=== PATIENT | female | born 1955 | race Caucasian/White ===

== ENCOUNTER 2021-09-26 | Inpatient (IN) | payer MEDICARE, MEDICAID ==
[~2021-09-26] VITALS: Ht 157.5 cm; Wt 40.4 kg
[2021-09-28] MEDS ORDERED: ACETAMINOPHEN 650 MG/20 ML UDC- SA PATIENTS-FEVER ONLY GT PRN (10:45)
[2021-09-28] MEDS ORDERED: HYDROGEN PEROXIDE 3% 118 ML BOTTLE TP PRN (10:45)
[2021-09-28] MEDS ORDERED: LORAZEPAM 0.5 MG TABLET GT PRN (10:45)
[2021-09-28] MEDS ORDERED: MEROPENEM 0.5 G in IV NORMAL SALINE 50 ML IV SCH (14:00)
[2021-09-28] MEDS: RILUZOLE 50 MG TABLET GT SCH (17:56)
[2021-09-28] MEDS: HYDROGEN PEROXIDE 3% 118 ML BOTTLE TP SCH (20:59)
[2021-09-28] MEDS: COD LIVER OIL/ZINC OXIDE OINT 113 GM TUBE TOP SCH (21:00)
[2021-09-28] MEDS: METOPROLOL TARTRATE 25 MG TABLET GT SCH (21:00)
[2021-09-28] MEDS: VITAMINS A AND D OINT TP SCH (21:00)
[2021-09-28] MEDS: NORMAL SALINE FLUSH 10 ML DISP.SYRIN IV SCH (21:00)
[2021-09-28] MEDS: HEPARIN SODIUM,PORCINE 5,000 UNITS/ML VIAL SQ SCH (21:00)
[2021-09-29] MEDS: JEVITY 1.2 1000 ML LIQUID GT PRN (04:04)
[2021-09-29] MEDS: MULTIVITAMINS,THERAPEUTIC TABLET GT SCH (06:28)
[2021-09-29] MEDS: RILUZOLE 50 MG TABLET GT SCH ×2 (06:28→17:39)
[2021-09-29] MEDS: FAMOTIDINE 20 MG TABLET GT SCH (06:28)
[2021-09-29] MEDS: ASCORBIC ACID 500 MG TABLET GT SCH (06:28)
[2021-09-29] MEDS: NORMAL SALINE FLUSH 10 ML DISP.SYRIN IV SCH ×2 (09:00→21:00)
[2021-09-29] MEDS: METOPROLOL TARTRATE 25 MG TABLET GT SCH ×2 (09:00→21:00)
[2021-09-29] MEDS: COD LIVER OIL/ZINC OXIDE OINT 113 GM TUBE TOP SCH ×2 (09:12→21:00)
[2021-09-29] MEDS: HEPARIN SODIUM,PORCINE 5,000 UNITS/ML VIAL SQ SCH ×2 (09:12→21:00)
[2021-09-29] MEDS: VITAMINS A AND D OINT TP SCH ×2 (09:12→21:00)
[2021-09-29] MEDS: HYDROGEN PEROXIDE 3% 118 ML BOTTLE TP SCH ×2 (09:29→21:18)
--- NOTE | 2021-09-29 11:25 | NUR ---
This SW notified patient's son Thor by email that the next IDT meeting for the patient is scheduled for 10/06/2021 at 11am. This SW asked Thor to let this SW know if he would like to participate in the meeting by speaker phone
[2021-09-30] MEDS: JEVITY 1.2 1000 ML LIQUID GT PRN ×2 (00:56→17:35)
[2021-09-30] MEDS: RILUZOLE 50 MG TABLET GT SCH ×2 (05:41→17:16)
[2021-09-30] MEDS: MULTIVITAMINS,THERAPEUTIC TABLET GT SCH (05:41)
[2021-09-30] MEDS: FAMOTIDINE 20 MG TABLET GT SCH (05:41)
[2021-09-30] MEDS: ASCORBIC ACID 500 MG TABLET GT SCH (05:41)
[2021-09-30] MEDS: METOPROLOL TARTRATE 25 MG TABLET GT SCH ×2 (08:35→20:07)
[2021-09-30] MEDS: VITAMINS A AND D OINT TP SCH ×2 (08:36→20:11)
[2021-09-30] MEDS: NORMAL SALINE FLUSH 10 ML DISP.SYRIN IV SCH ×2 (08:36→21:00)
[2021-09-30] MEDS: COD LIVER OIL/ZINC OXIDE OINT 113 GM TUBE TOP SCH ×2 (08:36→20:11)
[2021-09-30] MEDS: HEPARIN SODIUM,PORCINE 5,000 UNITS/ML VIAL SQ SCH ×2 (08:38→20:08)
[2021-09-30] MEDS: HYDROGEN PEROXIDE 3% 118 ML BOTTLE TP SCH ×2 (09:14→21:00)
[2021-10-01] MEDS: FAMOTIDINE 20 MG TABLET GT SCH (05:10)
[2021-10-01] MEDS: ASCORBIC ACID 500 MG TABLET GT SCH (05:10)
[2021-10-01] MEDS: MULTIVITAMINS,THERAPEUTIC TABLET GT SCH (05:10)
[2021-10-01] MEDS: RILUZOLE 50 MG TABLET GT SCH ×2 (05:10→17:36)
[2021-10-01] MEDS: METOPROLOL TARTRATE 25 MG TABLET GT SCH ×2 (08:10→21:20)
[2021-10-01] MEDS: COD LIVER OIL/ZINC OXIDE OINT 113 GM TUBE TOP SCH ×2 (08:11→21:41)
[2021-10-01] MEDS: VITAMINS A AND D OINT TP SCH ×2 (08:11→21:41)
[2021-10-01] MEDS: HEPARIN SODIUM,PORCINE 5,000 UNITS/ML VIAL SQ SCH ×2 (08:11→21:21)
[2021-10-01] MEDS: HYDROGEN PEROXIDE 3% 118 ML BOTTLE TP SCH ×2 (08:35→19:32)
[2021-10-01] MEDS: NORMAL SALINE FLUSH 10 ML DISP.SYRIN IV SCH ×2 (09:00→21:00)
--- NOTE | 2021-10-01 19:30 | NUR ---
SEEN BY WITH NNO.
[2021-10-02] MEDS: JEVITY 1.2 1000 ML LIQUID GT PRN (03:40)
[2021-10-02] MEDS: MULTIVITAMINS,THERAPEUTIC TABLET GT SCH (05:12)
[2021-10-02] MEDS: ASCORBIC ACID 500 MG TABLET GT SCH (05:12)
[2021-10-02] MEDS: FAMOTIDINE 20 MG TABLET GT SCH (05:12)
[2021-10-02] MEDS: RILUZOLE 50 MG TABLET GT SCH ×2 (05:12→17:37)
[2021-10-02] MEDS: METOPROLOL TARTRATE 25 MG TABLET GT SCH ×2 (08:01→20:36)
[2021-10-02] MEDS: HEPARIN SODIUM,PORCINE 5,000 UNITS/ML VIAL SQ SCH ×2 (08:02→20:12)
[2021-10-02] MEDS: COD LIVER OIL/ZINC OXIDE OINT 113 GM TUBE TOP SCH ×2 (08:04→20:36)
[2021-10-02] MEDS: VITAMINS A AND D OINT TP SCH ×2 (08:04→20:38)
[2021-10-02] MEDS: NORMAL SALINE FLUSH 10 ML DISP.SYRIN IV SCH ×2 (09:00→21:00)
[2021-10-02] MEDS: HYDROGEN PEROXIDE 3% 118 ML BOTTLE TP SCH ×2 (09:45→21:05)
--- NOTE | 2021-10-02 17:01 | NUR ---
RT. ARM MIDLINE LOCAL DRESSING CHANGED IN STERILE MANNER ,REMAINS INTACT AND PATENT.
[2021-10-03] MEDS: JEVITY 1.2 1000 ML LIQUID GT PRN (01:11)
[2021-10-03] MEDS: RILUZOLE 50 MG TABLET GT SCH ×2 (05:37→17:40)
[2021-10-03] MEDS: ASCORBIC ACID 500 MG TABLET GT SCH (05:37)
[2021-10-03] MEDS: FAMOTIDINE 20 MG TABLET GT SCH (05:37)
[2021-10-03] MEDS: MULTIVITAMINS,THERAPEUTIC TABLET GT SCH (05:37)
[2021-10-03] MEDS: VITAMINS A AND D OINT TP SCH ×2 (08:53→21:19)
[2021-10-03] MEDS: COD LIVER OIL/ZINC OXIDE OINT 113 GM TUBE TOP SCH ×2 (08:53→21:19)
[2021-10-03] MEDS: METOPROLOL TARTRATE 25 MG TABLET GT SCH ×2 (08:53→21:18)
[2021-10-03] MEDS: HEPARIN SODIUM,PORCINE 5,000 UNITS/ML VIAL SQ SCH ×2 (08:54→21:20)
[2021-10-03] MEDS: NORMAL SALINE FLUSH 10 ML DISP.SYRIN IV SCH ×2 (09:00→21:00)
[2021-10-03] MEDS: HYDROGEN PEROXIDE 3% 118 ML BOTTLE TP SCH ×2 (09:07→21:04)
[2021-10-04] MEDS: ASCORBIC ACID 500 MG TABLET GT SCH (05:10)
[2021-10-04] MEDS: FAMOTIDINE 20 MG TABLET GT SCH (05:10)
[2021-10-04] MEDS: MULTIVITAMINS,THERAPEUTIC TABLET GT SCH (05:10)
[2021-10-04] MEDS: RILUZOLE 50 MG TABLET GT SCH ×2 (05:10→17:18)
[2021-10-04] MEDS: METOPROLOL TARTRATE 25 MG TABLET GT SCH ×2 (08:38→21:30)
[2021-10-04] MEDS: COD LIVER OIL/ZINC OXIDE OINT 113 GM TUBE TOP SCH ×2 (08:39→21:30)
[2021-10-04] MEDS: VITAMINS A AND D OINT TP SCH ×2 (08:39→21:31)
[2021-10-04] MEDS: HEPARIN SODIUM,PORCINE 5,000 UNITS/ML VIAL SQ SCH ×2 (08:40→21:00)
[2021-10-04] MEDS: HYDROGEN PEROXIDE 3% 118 ML BOTTLE TP SCH ×2 (09:01→21:17)
--- NOTE | 2021-10-04 13:00 | NUR ---
SEEN BY JAKE Valdes AND WITH NNO.
[2021-10-04] MEDS: NORMAL SALINE FLUSH 10 ML DISP.SYRIN IV SCH (21:00)
[2021-10-05] MEDS: RILUZOLE 50 MG TABLET GT SCH ×2 (05:42→17:47)
[2021-10-05] MEDS: FAMOTIDINE 20 MG TABLET GT SCH (05:42)
[2021-10-05] MEDS: ASCORBIC ACID 500 MG TABLET GT SCH (05:43)
[2021-10-05] MEDS: MULTIVITAMINS,THERAPEUTIC TABLET GT SCH (05:43)
[2021-10-05] MEDS: METOPROLOL TARTRATE 25 MG TABLET GT SCH ×2 (08:48→20:45)
[2021-10-05] MEDS: HEPARIN SODIUM,PORCINE 5,000 UNITS/ML VIAL SQ SCH ×2 (08:49→21:00)
[2021-10-05] MEDS: VITAMINS A AND D OINT TP SCH ×2 (08:49→20:45)
[2021-10-05] MEDS: COD LIVER OIL/ZINC OXIDE OINT 113 GM TUBE TOP SCH ×2 (08:49→20:45)
[2021-10-05] MEDS: HYDROGEN PEROXIDE 3% 118 ML BOTTLE TP SCH ×2 (09:27→21:35)
[2021-10-05] MEDS: NORMAL SALINE FLUSH 10 ML DISP.SYRIN IV SCH (21:00)
[2021-10-06] MEDS: JEVITY 1.2 1000 ML LIQUID GT PRN (03:59)
[2021-10-06] MEDS: FAMOTIDINE 20 MG TABLET GT SCH (05:23)
[2021-10-06] MEDS: RILUZOLE 50 MG TABLET GT SCH ×2 (05:23→17:41)
[2021-10-06] MEDS: MULTIVITAMINS,THERAPEUTIC TABLET GT SCH (05:23)
[2021-10-06] MEDS: ASCORBIC ACID 500 MG TABLET GT SCH (05:23)
[2021-10-06] MEDS: NORMAL SALINE FLUSH 10 ML DISP.SYRIN IV SCH ×2 (09:00→21:00)
[2021-10-06] MEDS: VITAMINS A AND D OINT TP SCH ×2 (09:07→20:05)
[2021-10-06] MEDS: COD LIVER OIL/ZINC OXIDE OINT 113 GM TUBE TOP SCH (09:07)
[2021-10-06] MEDS: METOPROLOL TARTRATE 25 MG TABLET GT SCH ×2 (09:07→20:06)
[2021-10-06] MEDS: HEPARIN SODIUM,PORCINE 5,000 UNITS/ML VIAL SQ SCH ×2 (09:08→20:05)
[2021-10-06] MEDS: HYDROGEN PEROXIDE 3% 118 ML BOTTLE TP SCH ×2 (09:41→20:16)
--- NOTE | 2021-10-06 13:58 | NUR ---
INTERDISCIPLINARY PLAN OF CARE CONFERENCE was held today. Pt's son Thor, was not available to participate in the meeting today. Dr. Ceja and the Interdisciplinary Team reviewed the current plan of care in detail. RN reported on patient's medical condition and note there has not been significant changes. Per dietitian, patient has been tolerating feeding. See all disciplines IDT notes and physician's progress notes for additional details.
--- NOTE | 2021-10-06 15:40 | NUR ---
PT'S SON WAS CALLED AND AWARE OF COVID 19 TEST RESULT NEGATIVE.
[2021-10-06] MEDS: REMEDY ESSENTIAL ZINC PASTE 113 GM TP SCH (20:05)
[2021-10-06] MEDS: ACETAMINOPHEN 650 MG/20 ML UDC- SA PATIENTS-PAIN ONLY GT PRN (20:30)
[2021-10-07] MEDS: JEVITY 1.2 1000 ML LIQUID GT PRN ×2 (00:45→22:00)
[2021-10-07] MEDS: MULTIVITAMINS,THERAPEUTIC TABLET GT SCH (05:57)
[2021-10-07] MEDS: FAMOTIDINE 20 MG TABLET GT SCH (05:57)
[2021-10-07] MEDS: ASCORBIC ACID 500 MG TABLET GT SCH (05:57)
[2021-10-07] MEDS: RILUZOLE 50 MG TABLET GT SCH ×2 (05:57→17:11)
[2021-10-07] MEDS: METOPROLOL TARTRATE 25 MG TABLET GT SCH ×2 (08:25→20:11)
[2021-10-07] MEDS: HEPARIN SODIUM,PORCINE 5,000 UNITS/ML VIAL SQ SCH ×2 (08:26→20:15)
[2021-10-07] MEDS: REMEDY ESSENTIAL ZINC PASTE 113 GM TP SCH ×2 (08:27→20:14)
[2021-10-07] MEDS: VITAMINS A AND D OINT TP SCH ×2 (08:27→20:14)
[2021-10-07] MEDS: NORMAL SALINE FLUSH 10 ML DISP.SYRIN IV SCH ×2 (09:00→21:05)
[2021-10-07] MEDS: HYDROGEN PEROXIDE 3% 118 ML BOTTLE TP SCH ×2 (09:27→21:01)
[2021-10-07] MEDS ORDERED: DOSING PER PHARMACY-AMIKACIN IV XX PRN (17:15)
--- NOTE | 2021-10-07 18:31 | NUR ---
Dr Ceja notified pt has elevated temp 100.4,with new orders noted and carried out .Blood culture done ,sputum c/s send.
--- NOTE | 2021-10-07 18:45 | NUR ---
Pt's son Thor notified regarding the change of condition and new orders ,agreed with the plan of care.
--- NOTE | 2021-10-07 19:00 | NUR ---
Covid 19 test done as per [facility] requirement,Thor neil's son notified.
--- NOTE | 2021-10-07 19:03 | NUR ---
Patient noted with elevated temp 100.5F, PRN Tylenol given as ordered. Dr. Ceja on site and made aware with new orders given, noted and carried out. Re-check temp after 1 hr, noted 98.9F. Will endorse accordingly to next shift.
[2021-10-07] MEDS ORDERED: AMIKACIN 200 MG in IV DEXTROSE 5% 100 ML IV ONE (21:00)
--- NOTE | 2021-10-07 21:00 | NUR ---
Patient is awake, connected to vent, ventilator working properly, no respiratory distress noted.Started on Normal saline 0.9% @ 60ml/hr X 2 liters, Amikacin 200mg IV and Merrem 1 gram IV for fever and increases secretions. Collected urine for c&s, sputum c&s and CXR and blood cultures X 2 done. LAbs in am: CBC, BMP, Phos and Mg. Fluids given as ordered, turned and repositioned, kept clean and comfortable.
[2021-10-07] MEDS: IV NS 1000 ML 1,000 ML IV SCH (21:05)
[2021-10-07] MEDS: MEROPENEM 1 G in IV NORMAL SALINE 100 ML IV SCH (22:04)
[2021-10-07 23:05] LABS: *BILIRUBIN,URIN NEGATIVE (NEGATIVE); *CLARITY,URINE CLOUDY (CLEAR); *COLOR,URINE YELLOW (YELLOW); *KETONES,URINE NEGATIVE (NEGATIVE); *UROBILINOGEN,URINE 0.2 E.U./dl (NORMAL); LEUKOCYTE ESTERASE ,URINE 1+ (NEGATIVE); NITRITE, URINE NEGATIVE (NEGATIVE); UGLUCOSE NEGATIVE (NEGATIVE)
[2021-10-07 23:13] LABS: *BLOOD, URINE TRACE (NEGATIVE)
[2021-10-07 23:15] LABS: BACTERIA,URINE MODERATE /HPF (NONE SEEN); SQUAMOUS EPITHELIAL CELL,UR MANY /HPF (NONE SEEN); WBC,URINE 50-80 /HPF (0-3)
[2021-10-08] MEDS: MULTIVITAMINS,THERAPEUTIC TABLET GT SCH (05:10)
[2021-10-08] MEDS: RILUZOLE 50 MG TABLET GT SCH ×2 (05:10→17:58)
[2021-10-08] MEDS: FAMOTIDINE 20 MG TABLET GT SCH (05:10)
[2021-10-08] MEDS: ASCORBIC ACID 500 MG TABLET GT SCH (05:10)
[2021-10-08] MEDS: MEROPENEM 1 G in IV NORMAL SALINE 100 ML IV SCH ×3 (05:41→22:00)
[2021-10-08 05:57] LABS: HEMATOCRIT 26.3 % (31.2-41.9); MEAN CORPUSCULAR HEMOGLOBIN 27.8 uug (24.7-32.8); MEAN CORPUSCULAR VOLUME 85.8 fL (75.5-95.3); PLATELET COUNT (AUTO) 397 K/uL (179-408)
[2021-10-08 06:11] LABS: ALANINE AMINOTRANSFERASE 31 U/L (14-59); ALKALINE PHOSPHATASE 109 U/L (50-136); ASPARTATE AMINOTRANSFERASE 16 U/L (15-37); BILIRUBIN,TOTAL 0.3 mg/dL (0.2-1.0); CARBON DIOXIDE 25 mmol/L (21-32); CHLORIDE 100 mmol/L (98-107); CREATININE 0.4 mg/dL (0.6-1.3); GLUCOSE 128 mg/dL (74-106); MAGNESIUM 1.8 mg/dL (1.8-2.4); PHOSPHOROUS 2.4 mg/dL (2.5-4.9); POTASSIUM 4.1 mmol/L (3.5-5.1); TOTAL PROTEIN, SERUM 7.2 g/dL (6.4-8.2); UREA NITROGEN, BLOOD 35 mg/dL (7-18)
[2021-10-08] MEDS: METOPROLOL TARTRATE 25 MG TABLET GT SCH ×2 (08:45→20:08)
[2021-10-08] MEDS: NORMAL SALINE FLUSH 10 ML DISP.SYRIN IV SCH ×2 (08:47→20:09)
[2021-10-08] MEDS: REMEDY ESSENTIAL ZINC PASTE 113 GM TP SCH ×2 (08:47→20:09)
[2021-10-08] MEDS: VITAMINS A AND D OINT TP SCH ×2 (08:47→20:09)
[2021-10-08] MEDS: HEPARIN SODIUM,PORCINE 5,000 UNITS/ML VIAL SQ SCH ×2 (08:48→20:11)
[2021-10-08] MEDS: HYDROGEN PEROXIDE 3% 118 ML BOTTLE TP SCH ×2 (09:05→21:07)
[2021-10-08] MEDS: AMIKACIN 400 MG in IV DEXTROSE 5% 100 ML IV SCH (11:35)
[2021-10-08] MEDS ORDERED: NEUTRA PHOS PACKET GT ONE (17:00)
--- NOTE | 2021-10-08 20:35 | NUR ---
RT6. ARM MIDLINE DRESSING CHANGEDE ,REMAINS PATENT WITH OUT S/S OF INFECTION.
[2021-10-08] MEDS: IV NS 1000 ML 1,000 ML IV SCH (23:00)
[2021-10-08] MEDS ORDERED: AMIKACIN SULFATE 500 MG/2 ML VIAL ONE (23:13)
[2021-10-09] MEDS: MEROPENEM 1 G in IV NORMAL SALINE 100 ML IV SCH ×3 (05:11→22:00)
[2021-10-09] MEDS: MULTIVITAMINS,THERAPEUTIC TABLET GT SCH (05:34)
[2021-10-09] MEDS: ASCORBIC ACID 500 MG TABLET GT SCH (05:34)
[2021-10-09] MEDS: RILUZOLE 50 MG TABLET GT SCH ×2 (05:34→17:13)
[2021-10-09] MEDS: FAMOTIDINE 20 MG TABLET GT SCH (05:34)
--- NOTE | 2021-10-09 06:59 | NUR ---
Patient continue on IV hydration as ordered on Amikacin 400 mg IV and Merrem 1 gram IV for fever and increases secretions, as ordered by MD No adverse reaction noted. Remain afebrile at this time, continue monitoring.
[2021-10-09] MEDS: METOPROLOL TARTRATE 25 MG TABLET GT SCH ×2 (08:48→21:38)
[2021-10-09] MEDS: VITAMINS A AND D OINT TP SCH ×2 (08:51→20:19)
[2021-10-09] MEDS: HEPARIN SODIUM,PORCINE 5,000 UNITS/ML VIAL SQ SCH ×2 (08:51→21:05)
[2021-10-09] MEDS: REMEDY ESSENTIAL ZINC PASTE 113 GM TP SCH ×2 (08:51→20:19)
[2021-10-09] MEDS: NORMAL SALINE FLUSH 10 ML DISP.SYRIN IV SCH ×2 (09:00→20:19)
[2021-10-09] MEDS: HYDROGEN PEROXIDE 3% 118 ML BOTTLE TP SCH ×2 (09:04→21:10)
[2021-10-09] MEDS: JEVITY 1.2 1000 ML LIQUID GT PRN (11:56)
[2021-10-09] MEDS: AMIKACIN 400 MG in IV DEXTROSE 5% 100 ML IV SCH ×4 (12:02→23:55)
[2021-10-09] MEDS: ACETAMINOPHEN 650 MG/20 ML UDC- SA PATIENTS-PAIN ONLY GT PRN (21:38)
--- NOTE | 2021-10-09 23:32 | NUR ---
Continues on Amikacin and Merrem IV for fever and increased secretions, no adverse reactions noted. afebrile, no signs of any respiratory distress noted. Fluids given as ordered, kept clean and comfortable.
[2021-10-10] MEDS: JEVITY 1.2 1000 ML LIQUID GT PRN (04:17)
[2021-10-10] MEDS: FAMOTIDINE 20 MG TABLET GT SCH (05:03)
[2021-10-10] MEDS: RILUZOLE 50 MG TABLET GT SCH ×2 (05:03→18:18)
[2021-10-10] MEDS: MULTIVITAMINS,THERAPEUTIC TABLET GT SCH (05:03)
[2021-10-10] MEDS: ASCORBIC ACID 500 MG TABLET GT SCH (05:03)
[2021-10-10] MEDS: MEROPENEM 1 G in IV NORMAL SALINE 100 ML IV SCH ×3 (06:01→22:00)
[2021-10-10] MEDS: METOPROLOL TARTRATE 25 MG TABLET GT SCH ×2 (08:34→20:54)
[2021-10-10] MEDS: HEPARIN SODIUM,PORCINE 5,000 UNITS/ML VIAL SQ SCH ×2 (08:35→20:55)
[2021-10-10] MEDS: VITAMINS A AND D OINT TP SCH ×2 (08:42→20:55)
[2021-10-10] MEDS: REMEDY ESSENTIAL ZINC PASTE 113 GM TP SCH ×2 (08:42→20:55)
[2021-10-10] MEDS: NORMAL SALINE FLUSH 10 ML DISP.SYRIN IV SCH ×2 (09:00→20:54)
[2021-10-10] MEDS: HYDROGEN PEROXIDE 3% 118 ML BOTTLE TP SCH ×2 (09:00→21:32)
--- NOTE | 2021-10-10 10:28 | NUR ---
Continue on Amikacin and Merren IVATB for elevated temp,no adverse reaction ,midline on the R upper arm intact.
[2021-10-10] MEDS: AMIKACIN 400 MG in IV DEXTROSE 5% 100 ML IV SCH (12:34)
--- NOTE | 2021-10-10 22:45 | NUR ---
Still on Amikacin IV for Pneumonia, and On Merrem IV for fever, no adverse reactions noted. Afebrile, Midline on Right upper arm is intact and no signs of infection. No respiratory distress noted, connected to vent. Kept clean and comfortable.
[2021-10-11] MEDS: AMIKACIN 400 MG in IV DEXTROSE 5% 100 ML IV SCH ×2
[2021-10-11] MEDS: FAMOTIDINE 20 MG TABLET GT SCH (05:17)
[2021-10-11] MEDS: ASCORBIC ACID 500 MG TABLET GT SCH (05:18)
[2021-10-11] MEDS: RILUZOLE 50 MG TABLET GT SCH ×2 (05:18→17:02)
[2021-10-11] MEDS: MULTIVITAMINS,THERAPEUTIC TABLET GT SCH (05:18)
[2021-10-11] MEDS: MEROPENEM 1 G in IV NORMAL SALINE 100 ML IV SCH ×3 (05:18→22:00)
[2021-10-11] MEDS: JEVITY 1.2 1000 ML LIQUID GT PRN (05:18)
--- NOTE | 2021-10-11 06:30 | NUR ---
Noted with orders to continue Amikacin 400mg IV every 12 hours fro fever, to do CBC, BMP on am and to D/c Amikacin on 10/12/21.
[2021-10-11] MEDS: METOPROLOL TARTRATE 25 MG TABLET GT SCH ×2 (08:26→21:00)
[2021-10-11] MEDS: NORMAL SALINE FLUSH 10 ML DISP.SYRIN IV SCH ×2 (08:27→21:00)
[2021-10-11] MEDS: HEPARIN SODIUM,PORCINE 5,000 UNITS/ML VIAL SQ SCH ×2 (08:29→21:00)
[2021-10-11] MEDS: REMEDY ESSENTIAL ZINC PASTE 113 GM TP SCH ×2 (08:29→21:15)
[2021-10-11] MEDS: VITAMINS A AND D OINT TP SCH ×2 (08:29→21:15)
[2021-10-11] MEDS: HYDROGEN PEROXIDE 3% 118 ML BOTTLE TP SCH ×2 (09:00→21:22)
--- NOTE | 2021-10-11 18:00 | NUR ---
Continue on IVATB,no adverse reaction noted.Iv on the R upper arm intact.
--- NOTE | 2021-10-11 23:05 | NUR ---
Continues on Merrem IV for fever/ Pneumonia, no adverse reactions noted. Midline on GEORGE is intact and patent, no infiltration noted, no respiratory distress noted, Gt feeding tolerating well, no n/v noted. Kept clean and comfortable.
[2021-10-12] MEDS: JEVITY 1.2 1000 ML LIQUID GT PRN ×2 (00:21→23:25)
[2021-10-12] MEDS: FAMOTIDINE 20 MG TABLET GT SCH (05:15)
[2021-10-12] MEDS: ASCORBIC ACID 500 MG TABLET GT SCH (05:15)
[2021-10-12] MEDS: MULTIVITAMINS,THERAPEUTIC TABLET GT SCH (05:15)
[2021-10-12] MEDS: RILUZOLE 50 MG TABLET GT SCH ×2 (05:15→17:40)
[2021-10-12] MEDS: MEROPENEM 1 G in IV NORMAL SALINE 100 ML IV SCH ×3 (05:49→21:59)
[2021-10-12 08:17] LABS: HEMATOCRIT 26.4 % (31.2-41.9); MEAN CORPUSCULAR HEMOGLOBIN 28.1 uug (24.7-32.8); MEAN CORPUSCULAR VOLUME 84.8 fL (75.5-95.3); PLATELET COUNT (AUTO) 397 K/uL (179-408)
[2021-10-12 08:20] LABS: CREATININE 0.5 mg/dL (0.6-1.3); POTASSIUM 4.2 mmol/L (3.5-5.1)
[2021-10-12] MEDS: NORMAL SALINE FLUSH 10 ML DISP.SYRIN IV SCH ×2 (09:00→20:32)
[2021-10-12] MEDS: HYDROGEN PEROXIDE 3% 118 ML BOTTLE TP SCH ×2 (09:18→21:10)
[2021-10-12] MEDS: REMEDY ESSENTIAL ZINC PASTE 113 GM TP SCH ×2 (09:45→21:01)
[2021-10-12] MEDS: METOPROLOL TARTRATE 25 MG TABLET GT SCH ×2 (09:45→21:01)
[2021-10-12] MEDS: VITAMINS A AND D OINT TP SCH ×2 (09:45→21:01)
[2021-10-12] MEDS: HEPARIN SODIUM,PORCINE 5,000 UNITS/ML VIAL SQ SCH ×2 (09:48→21:02)
--- NOTE | 2021-10-12 14:22 | NUR ---
Cont to be on IV ATB Merrem for PNA, no adverse reaction noted. Will cont to monitor. GEORGE IV site intact, no redness, no bleeding noted.
--- NOTE | 2021-10-12 14:30 | NUR ---
This SW notified patient's son Thor by email that the next IDT meeting for the patient is scheduled for 10/20/2021 at 11am. This SW asked Thor to let this SW know if he would like to participate in the meeting by speaker phone.
[2021-10-13] MEDS: MEROPENEM 1 G in IV NORMAL SALINE 100 ML IV SCH ×3 (05:04→21:54)
[2021-10-13] MEDS: MULTIVITAMINS,THERAPEUTIC TABLET GT SCH (06:00)
[2021-10-13] MEDS: ASCORBIC ACID 500 MG TABLET GT SCH (06:00)
[2021-10-13] MEDS: FAMOTIDINE 20 MG TABLET GT SCH (06:00)
[2021-10-13] MEDS: RILUZOLE 50 MG TABLET GT SCH ×2 (06:00→17:09)
[2021-10-13] MEDS: HEPARIN SODIUM,PORCINE 5,000 UNITS/ML VIAL SQ SCH ×2 (08:15→20:19)
[2021-10-13] MEDS: VITAMINS A AND D OINT TP SCH ×2 (08:16→20:08)
[2021-10-13] MEDS: METOPROLOL TARTRATE 25 MG TABLET GT SCH ×2 (08:16→20:07)
[2021-10-13] MEDS: REMEDY ESSENTIAL ZINC PASTE 113 GM TP SCH ×2 (08:16→20:08)
[2021-10-13] MEDS: NORMAL SALINE FLUSH 10 ML DISP.SYRIN IV SCH ×2 (09:00→21:00)
[2021-10-13] MEDS: HYDROGEN PEROXIDE 3% 118 ML BOTTLE TP SCH ×2 (09:19→21:15)
--- NOTE | 2021-10-13 14:01 | NUR ---
Still on IV ATB Merrem, no adverse reaction noted. No elevated temp noted. IV site intact, no swelling, no bleeding noted. Will cont to monitor.
--- NOTE | 2021-10-13 14:45 | NUR ---
Pt continue on IVATB Merren ,for fever/pneumonia .no adverse reaction noted,midline on the R upper arm intact,no s/s of infection noted.Flushed as ordered.
[2021-10-13] MEDS: JEVITY 1.2 1000 ML LIQUID GT PRN (18:42)
--- NOTE | 2021-10-13 23:00 | NUR ---
Remains on Merrem IV for Fever/Pneumonia, no adverse reactions noted. Fluids given as ordered, on contact isolation for ESBL in the urine, good [place] care rendered, kept clean and comfortable, will continue monitor.
[2021-10-14 00:40] VITALS: BP 111/72
[2021-10-14] MEDS: RILUZOLE 50 MG TABLET GT SCH ×2 (05:46→17:26)
[2021-10-14] MEDS: MULTIVITAMINS,THERAPEUTIC TABLET GT SCH (05:46)
[2021-10-14] MEDS: FAMOTIDINE 20 MG TABLET GT SCH (05:46)
[2021-10-14] MEDS: ASCORBIC ACID 500 MG TABLET GT SCH (05:47)
[2021-10-14] MEDS: MEROPENEM 1 G in IV NORMAL SALINE 100 ML IV SCH ×2 (05:51→14:19)
[2021-10-14] MEDS: METOPROLOL TARTRATE 25 MG TABLET GT SCH ×2 (08:41→20:02)
[2021-10-14] MEDS: HEPARIN SODIUM,PORCINE 5,000 UNITS/ML VIAL SQ SCH ×2 (08:42→21:58)
[2021-10-14] MEDS: REMEDY ESSENTIAL ZINC PASTE 113 GM TP SCH ×2 (09:00→20:02)
[2021-10-14] MEDS: NORMAL SALINE FLUSH 10 ML DISP.SYRIN IV SCH ×2 (09:00→20:02)
[2021-10-14] MEDS: VITAMINS A AND D OINT TP SCH ×2 (09:00→20:02)
[2021-10-14] MEDS: HYDROGEN PEROXIDE 3% 118 ML BOTTLE TP SCH ×2 (09:23→20:42)
--- NOTE | 2021-10-14 23:08 | NUR ---
Last dose of Merrem IV was given by Morning shift, no adverse reactions noted. Afebrile, no signs of any respiratory distress noted, on vent support, kept clean and comfortable.
[2021-10-15] MEDS: FAMOTIDINE 20 MG TABLET GT SCH (05:02)
[2021-10-15] MEDS: RILUZOLE 50 MG TABLET GT SCH ×2 (05:02→17:22)
[2021-10-15] MEDS: ASCORBIC ACID 500 MG TABLET GT SCH (05:02)
[2021-10-15] MEDS: MULTIVITAMINS,THERAPEUTIC TABLET GT SCH (05:02)
[2021-10-15] MEDS: HYDROGEN PEROXIDE 3% 118 ML BOTTLE TP SCH ×2 (07:35→20:54)
[2021-10-15] MEDS: VITAMINS A AND D OINT TP SCH ×2 (08:26→20:56)
[2021-10-15] MEDS: METOPROLOL TARTRATE 25 MG TABLET GT SCH ×2 (08:26→20:56)
[2021-10-15] MEDS: HEPARIN SODIUM,PORCINE 5,000 UNITS/ML VIAL SQ SCH ×2 (08:26→20:58)
[2021-10-15] MEDS: REMEDY ESSENTIAL ZINC PASTE 113 GM TP SCH ×2 (08:26→20:56)
--- NOTE | 2021-10-15 12:00 | NUR ---
SEEN BY DR. GUZMAN AND WITH NNO.
[2021-10-15] MEDS: NORMAL SALINE FLUSH 10 ML DISP.SYRIN IV SCH (21:00)
[2021-10-16] MEDS: MULTIVITAMINS,THERAPEUTIC TABLET GT SCH (05:00)
[2021-10-16] MEDS: FAMOTIDINE 20 MG TABLET GT SCH (05:00)
[2021-10-16] MEDS: RILUZOLE 50 MG TABLET GT SCH ×2 (05:00→17:45)
[2021-10-16] MEDS: ASCORBIC ACID 500 MG TABLET GT SCH (05:01)
[2021-10-16] MEDS: METOPROLOL TARTRATE 25 MG TABLET GT SCH ×2 (08:34→20:13)
[2021-10-16] MEDS: HEPARIN SODIUM,PORCINE 5,000 UNITS/ML VIAL SQ SCH ×2 (08:35→21:05)
[2021-10-16] MEDS: REMEDY ESSENTIAL ZINC PASTE 113 GM TP SCH ×2 (08:36→20:13)
[2021-10-16] MEDS: VITAMINS A AND D OINT TP SCH ×2 (08:36→20:13)
[2021-10-16] MEDS: NORMAL SALINE FLUSH 10 ML DISP.SYRIN IV SCH ×2 (09:18→21:00)
[2021-10-16] MEDS: HYDROGEN PEROXIDE 3% 118 ML BOTTLE TP SCH ×2 (09:39→21:07)
[2021-10-17] MEDS: RILUZOLE 50 MG TABLET GT SCH ×2 (05:03→17:09)
[2021-10-17] MEDS: ASCORBIC ACID 500 MG TABLET GT SCH (05:03)
[2021-10-17] MEDS: FAMOTIDINE 20 MG TABLET GT SCH (05:03)
[2021-10-17] MEDS: MULTIVITAMINS,THERAPEUTIC TABLET GT SCH (05:03)
[2021-10-17] MEDS: ACETAMINOPHEN 650 MG/20 ML UDC- SA PATIENTS-PAIN ONLY GT PRN (05:04)
[2021-10-17] MEDS: METOPROLOL TARTRATE 25 MG TABLET GT SCH ×2 (08:20→20:27)
[2021-10-17] MEDS: HEPARIN SODIUM,PORCINE 5,000 UNITS/ML VIAL SQ SCH ×2 (08:24→20:56)
[2021-10-17] MEDS: NORMAL SALINE FLUSH 10 ML DISP.SYRIN IV SCH ×2 (08:38→21:00)
[2021-10-17] MEDS: HYDROGEN PEROXIDE 3% 118 ML BOTTLE TP SCH ×2 (09:00→21:37)
[2021-10-17] MEDS: VITAMINS A AND D OINT TP SCH ×2 (09:00→20:28)
[2021-10-17] MEDS: REMEDY ESSENTIAL ZINC PASTE 113 GM TP SCH ×2 (09:00→20:28)
[2021-10-17] MEDS: JEVITY 1.2 1000 ML LIQUID GT PRN (10:54)
--- NOTE | 2021-10-17 18:30 | NUR ---
PT'S SON WAS NOTIFIED RE:NEGATIVE COVID 19 TEST RESULT FROM 10/11/21.
[2021-10-18] MEDS: RILUZOLE 50 MG TABLET GT SCH ×2 (05:11→17:20)
[2021-10-18] MEDS: ASCORBIC ACID 500 MG TABLET GT SCH (05:11)
[2021-10-18] MEDS: FAMOTIDINE 20 MG TABLET GT SCH (05:11)
[2021-10-18] MEDS: MULTIVITAMINS,THERAPEUTIC TABLET GT SCH (05:11)
[2021-10-18] MEDS: HEPARIN SODIUM,PORCINE 5,000 UNITS/ML VIAL SQ SCH ×2 (08:32→21:02)
[2021-10-18] MEDS: METOPROLOL TARTRATE 25 MG TABLET GT SCH ×2 (08:32→20:09)
[2021-10-18] MEDS: REMEDY ESSENTIAL ZINC PASTE 113 GM TP SCH ×2 (08:33→20:09)
[2021-10-18] MEDS: VITAMINS A AND D OINT TP SCH ×2 (08:33→20:09)
[2021-10-18] MEDS: NORMAL SALINE FLUSH 10 ML DISP.SYRIN IV SCH ×2 (09:00→20:43)
[2021-10-18] MEDS: HYDROGEN PEROXIDE 3% 118 ML BOTTLE TP SCH ×2 (09:27→21:00)
[2021-10-18] MEDS: JEVITY 1.2 1000 ML LIQUID GT PRN (17:19)
[2021-10-19] MEDS: MULTIVITAMINS,THERAPEUTIC TABLET GT SCH (05:08)
[2021-10-19] MEDS: RILUZOLE 50 MG TABLET GT SCH ×2 (05:08→18:00)
[2021-10-19] MEDS: ASCORBIC ACID 500 MG TABLET GT SCH (05:08)
[2021-10-19] MEDS: FAMOTIDINE 20 MG TABLET GT SCH (05:08)
[2021-10-19] MEDS: HYDROGEN PEROXIDE 3% 118 ML BOTTLE TP SCH ×2 (08:24→21:22)
[2021-10-19] MEDS: METOPROLOL TARTRATE 25 MG TABLET GT SCH ×2 (08:34→21:00)
[2021-10-19] MEDS: HEPARIN SODIUM,PORCINE 5,000 UNITS/ML VIAL SQ SCH ×2 (08:36→21:00)
[2021-10-19] MEDS: VITAMINS A AND D OINT TP SCH ×2 (08:37→21:00)
[2021-10-19] MEDS: REMEDY ESSENTIAL ZINC PASTE 113 GM TP SCH ×2 (08:37→21:00)
[2021-10-19] MEDS: NORMAL SALINE FLUSH 10 ML DISP.SYRIN IV SCH ×2 (09:00→21:00)
--- NOTE | 2021-10-19 12:00 | NUR ---
PT. WAS SEEN AND EXAMINED BY JAKE Valdes AND SPOKE TO RT AND WITH NEW ORDERS CARRIED OUT.
[2021-10-19 14:04] LABS: HEMATOCRIT 24.7 % (31.2-41.9); MEAN CORPUSCULAR HEMOGLOBIN 27.9 uug (24.7-32.8); MEAN CORPUSCULAR VOLUME 84.3 fL (75.5-95.3); PLATELET COUNT (AUTO) 612 K/uL (179-408)
[2021-10-19 14:15] LABS: BILIRUBIN,TOTAL 0.3 mg/dL (0.2-1.0); CREATININE 0.5 mg/dL (0.6-1.3); POTASSIUM 4.6 mmol/L (3.5-5.1); TOTAL PROTEIN, SERUM 7.9 g/dL (6.4-8.2)
[2021-10-19] MEDS ORDERED: [UNRECOGNIZED DRUG - REMARK] XX PRN (14:30)
--- NOTE | 2021-10-19 16:02 | NUR ---
DR. REGALADO WAS NOTIFIED RE: CBC WITH 21.9 WBC AND WITH NEW ORDERS FOLLOW:SPUTUN C&S AND CXR AND PROCALCITONIN IN AM.
--- NOTE | 2021-10-19 17:32 | NUR ---
PT'S SON WAS NOTIFIED ABOUT PT'S ORDERS AND IN AGREEMENT.
--- NOTE | 2021-10-19 17:33 | NUR ---
PT. REMAINS AFEBRILE WITH THICK TRACHEAL GREENISH SECRETIONS,TRACH SUCTION NEEDED AND FREQUENT VISUAL CHECKS D/T NO COUGH REFLEX ,ASPIRATION PRECAUTIONS KEPT AT ALL TIMES.
[2021-10-19] MEDS: JEVITY 1.2 1000 ML LIQUID GT PRN (22:23)
[2021-10-19] MEDS: ACETAMINOPHEN 650 MG/20 ML UDC- SA PATIENTS-PAIN ONLY GT PRN (22:29)
--- NOTE | 2021-10-19 23:30 | NUR ---
Patient is afebrile, trach is intact and patent, connected to vent, no respiratory distress noted. Noted with thick and increased greenish secretions, 02 sat is 98%, Gt feeding is tolerating well, no nausea or vomiting noted, voiding freely with yellow urine, good [place] care rendered, GEORGE midline in intact and flushing well, no signs of pain or discomfort at this time, will continue monitor.
[2021-10-20] MEDS: FAMOTIDINE 20 MG TABLET GT SCH (05:14)
[2021-10-20] MEDS: RILUZOLE 50 MG TABLET GT SCH ×2 (05:14→18:19)
[2021-10-20] MEDS: ASCORBIC ACID 500 MG TABLET GT SCH (05:14)
[2021-10-20] MEDS: MULTIVITAMINS,THERAPEUTIC TABLET GT SCH (05:14)
[2021-10-20 06:35] LABS: HEMATOCRIT 22.3 % (31.2-41.9)
[2021-10-20 06:39] LABS: MEAN CORPUSCULAR VOLUME 84.5 fL (75.5-95.3); PLATELET COUNT (AUTO) 566 K/uL (179-408)
--- NOTE | 2021-10-20 07:25 | NUR ---
CAM FROM LAB CALLED AND NOTIFIED NURSE ABOUT HGB 74 AND HEMATOCRIT 22.3,CH. NURSE NOTIFIED AND WILL F/U.
--- NOTE | 2021-10-20 08:00 | NUR ---
Dr Liriano was notified regarding the hemog results.
[2021-10-20] MEDS: METOPROLOL TARTRATE 25 MG TABLET GT SCH ×2 (09:00→21:00)
[2021-10-20] MEDS: NORMAL SALINE FLUSH 10 ML DISP.SYRIN IV SCH ×2 (09:00→21:00)
[2021-10-20] MEDS: HYDROGEN PEROXIDE 3% 118 ML BOTTLE TP SCH ×2 (09:17→20:28)
[2021-10-20] MEDS: HEPARIN SODIUM,PORCINE 5,000 UNITS/ML VIAL SQ SCH ×2 (09:32→21:43)
[2021-10-20] MEDS: REMEDY ESSENTIAL ZINC PASTE 113 GM TP SCH ×2 (09:35→21:06)
[2021-10-20] MEDS: VITAMINS A AND D OINT TP SCH ×2 (09:35→21:06)
[2021-10-20] MEDS: IPRATROPIUM BROMIDE 0.5 MG/2.5 ML NEBU NEB SCH ×3 (10:51→19:36)
[2021-10-20] MEDS: ACETYLCYSTEINE 10% 4ML VIAL NEB SCH ×3 (10:51→19:36)
--- NOTE | 2021-10-20 11:30 | NUR ---
irma lopez notified regarding the labs results ,new orders noted,Dr Liriano orders stool for OB.No bleeding noted.
[2021-10-20] MEDS ORDERED: MEROPENEM 1 G in IV NORMAL SALINE 100 ML IV SCH (16:00)
--- NOTE | 2021-10-20 18:26 | NUR ---
Stool for occult blood in stool collected and sent to lab.
--- NOTE | 2021-10-20 18:59 | NUR ---
start on Merren 1 Gm Ivatb,x 7 days,for pneumonia,no adverse reaction noted ,midline on the R upper arm intact.blood cultures done.sputum culture pending.
[2021-10-20 19:36] LABS: *OCCULT BLOOD STOOL NEGATIVE (NEGATIVE)
--- NOTE | 2021-10-20 23:40 | NUR ---
Still on Merrem IV for Pneumonia, no adverse reactions noted. GEORGE midline intact and patent. On contact isolation precaution for ESBL in the urine, Still with increased greenish secretions, connected to vent, vent is working properly, no respiratory distress noted. Kept patient clean and comfortable.
--- NOTE | 2021-10-21 00:45 | NUR ---
Noted with new order from DOE Cruz for urine culture, collected specimen and sent to the Lab.
[2021-10-21] MEDS: IPRATROPIUM BROMIDE 0.5 MG/2.5 ML NEBU NEB SCH ×4 (01:13→19:20)
[2021-10-21] MEDS: ACETYLCYSTEINE 10% 4ML VIAL NEB SCH ×4 (01:13→19:20)
[2021-10-21] MEDS: MEROPENEM 1 G in IV NORMAL SALINE 100 ML IV SCH ×3 (02:00→19:00)
[2021-10-21] MEDS: JEVITY 1.2 1000 ML LIQUID GT PRN (04:07)
[2021-10-21] MEDS: RILUZOLE 50 MG TABLET GT SCH ×2 (05:51→17:09)
[2021-10-21] MEDS: FAMOTIDINE 20 MG TABLET GT SCH (05:51)
[2021-10-21] MEDS: ASCORBIC ACID 500 MG TABLET GT SCH (05:51)
[2021-10-21] MEDS: MULTIVITAMINS,THERAPEUTIC TABLET GT SCH (05:51)
[2021-10-21] MEDS: HYDROGEN PEROXIDE 3% 118 ML BOTTLE TP SCH ×2 (08:12→21:12)
[2021-10-21] MEDS: VITAMINS A AND D OINT TP SCH ×2 (08:40→20:19)
[2021-10-21] MEDS: METOPROLOL TARTRATE 25 MG TABLET GT SCH ×2 (08:40→20:19)
[2021-10-21] MEDS: HEPARIN SODIUM,PORCINE 5,000 UNITS/ML VIAL SQ SCH ×2 (08:40→21:00)
[2021-10-21] MEDS: REMEDY ESSENTIAL ZINC PASTE 113 GM TP SCH ×2 (08:40→20:19)
[2021-10-21] MEDS: NORMAL SALINE FLUSH 10 ML DISP.SYRIN IV SCH ×2 (09:53→20:19)
--- NOTE | 2021-10-21 14:57 | NUR ---
INTERDISCIPLINARY PLAN OF CARE CONFERENCE was held on 10/20/2021. Pt's son Thor, was not available to participate in the meeting today. Dr. Ceja and the Interdisciplinary Team reviewed the current plan of care in detail. RN reported on patient's medical condition and informed of being stable and no major changes. Per nursing, patient has not experienced any anxiety episodes. See RN IDT conference notes. See all disciplines IDT notes and physician's progress notes for additional details.
--- NOTE | 2021-10-21 22:00 | NUR ---
Continues on Merrem IV for Pneumonia, no adverse reactions. Afebrile, no respiratory distress noted, suctioned with greenish secretions. Breathing treatment and on mucomyst via HHN , no signs of pain or discomfort noted,kept clean and comfortable.
[2021-10-22] MEDS: IPRATROPIUM BROMIDE 0.5 MG/2.5 ML NEBU NEB SCH ×4 (01:21→19:56)
[2021-10-22] MEDS: ACETYLCYSTEINE 10% 4ML VIAL NEB SCH ×4 (01:21→19:56)
[2021-10-22] MEDS: MEROPENEM 1 G in IV NORMAL SALINE 100 ML IV SCH ×3 (02:00→18:17)
[2021-10-22] MEDS: ASCORBIC ACID 500 MG TABLET GT SCH (05:38)
[2021-10-22] MEDS: MULTIVITAMINS,THERAPEUTIC TABLET GT SCH (05:38)
[2021-10-22] MEDS: RILUZOLE 50 MG TABLET GT SCH ×2 (05:38→17:43)
[2021-10-22] MEDS: FAMOTIDINE 20 MG TABLET GT SCH (05:38)
[2021-10-22 07:24] LABS: MEAN CORPUSCULAR HEMOGLOBIN 27.8 uug (24.7-32.8); MEAN CORPUSCULAR VOLUME 84.4 fL (75.5-95.3); PLATELET COUNT (AUTO) 744 K/uL (179-408)
[2021-10-22 07:37] LABS: CARBON DIOXIDE 25 mmol/L (21-32); CHLORIDE 97 mmol/L (98-107); CREATININE 0.4 mg/dL (0.6-1.3); GLUCOSE 100 mg/dL (74-106); POTASSIUM 4.8 mmol/L (3.5-5.1); UREA NITROGEN, BLOOD 34 mg/dL (7-18)
[2021-10-22] MEDS: HYDROGEN PEROXIDE 3% 118 ML BOTTLE TP SCH ×2 (07:40→21:19)
[2021-10-22] MEDS: METOPROLOL TARTRATE 25 MG TABLET GT SCH ×2 (08:57→21:00)
[2021-10-22] MEDS: HEPARIN SODIUM,PORCINE 5,000 UNITS/ML VIAL SQ SCH ×2 (08:58→21:24)
[2021-10-22 08:59] VITALS: BP 119/70
[2021-10-22] MEDS: NORMAL SALINE FLUSH 10 ML DISP.SYRIN IV SCH ×2 (09:00→21:00)
[2021-10-22] MEDS: REMEDY ESSENTIAL ZINC PASTE 113 GM TP SCH ×2 (09:00→21:25)
[2021-10-22] MEDS: VITAMINS A AND D OINT TP SCH ×2 (09:00→21:25)
--- NOTE | 2021-10-22 10:30 | NUR ---
NOTIFIED DR KRISHNAN OF ABNORMALLY LOW SODIUM OF 130, WITH NO NEW ORDERS.
[2021-10-22] MEDS: JEVITY 1.2 1000 ML LIQUID GT PRN (11:19)
--- NOTE | 2021-10-22 16:50 | NUR ---
RESPIRATORY CULTURE RESULTED. NOTIFIED DOE SCOTT WITH NEW ORDERS TO START TOBRAMYCIN IV PHARMACY TO DOSE. NOTED AND CARRIED OUT.
[2021-10-22] MEDS: TOBRAMYCIN SULFATE IV SCH (20:00)
[2021-10-22] MEDS: DEXTROSE 5% IV SCH (20:00)
[2021-10-23] MEDS: IPRATROPIUM BROMIDE 0.5 MG/2.5 ML NEBU NEB SCH ×4 (01:00→18:55)
[2021-10-23] MEDS: ACETYLCYSTEINE 10% 4ML VIAL NEB SCH ×4 (01:00→18:55)
[2021-10-23] MEDS: MEROPENEM 1 G in IV NORMAL SALINE 100 ML IV SCH ×3 (01:19→18:09)
[2021-10-23] MEDS: FAMOTIDINE 20 MG TABLET GT SCH (05:03)
[2021-10-23] MEDS: RILUZOLE 50 MG TABLET GT SCH ×2 (05:03→17:21)
[2021-10-23] MEDS: MULTIVITAMINS,THERAPEUTIC TABLET GT SCH (05:03)
[2021-10-23] MEDS: ASCORBIC ACID 500 MG TABLET GT SCH (05:03)
[2021-10-23 07:01] LABS: CHLORIDE 96 mmol/L (98-107); POTASSIUM 4.7 mmol/L (3.5-5.1)
[2021-10-23 07:03] LABS: CARBON DIOXIDE 25 mmol/L (21-32); CREATININE 0.4 mg/dL (0.6-1.3); GLUCOSE 108 mg/dL (74-106); UREA NITROGEN, BLOOD 28 mg/dL (7-18)
[2021-10-23] MEDS: METOPROLOL TARTRATE 25 MG TABLET GT SCH ×2 (08:23→21:00)
[2021-10-23] MEDS: HEPARIN SODIUM,PORCINE 5,000 UNITS/ML VIAL SQ SCH ×2 (08:24→21:00)
[2021-10-23] MEDS: REMEDY ESSENTIAL ZINC PASTE 113 GM TP SCH ×2 (08:25→21:32)
[2021-10-23] MEDS: VITAMINS A AND D OINT TP SCH ×2 (08:25→21:32)
[2021-10-23 08:26] VITALS: BP 105/71
[2021-10-23] MEDS: NORMAL SALINE FLUSH 10 ML DISP.SYRIN IV SCH ×2 (09:00→21:00)
[2021-10-23] MEDS: HYDROGEN PEROXIDE 3% 118 ML BOTTLE TP SCH ×2 (09:00→21:03)
[2021-10-23] MEDS: TOBRAMYCIN SULFATE IV SCH (20:30)
[2021-10-23] MEDS: DEXTROSE 5% IV SCH (20:30)
[2021-10-23] MEDS: ACETAMINOPHEN 650 MG/20 ML UDC- SA PATIENTS-PAIN ONLY GT PRN (21:32)
[2021-10-23] MEDS: JEVITY 1.2 1000 ML LIQUID GT PRN (23:31)
[2021-10-24] VITALS: BP 109/60
[2021-10-24] MEDS: IPRATROPIUM BROMIDE 0.5 MG/2.5 ML NEBU NEB SCH ×4 (00:50→19:23)
[2021-10-24] MEDS: ACETYLCYSTEINE 10% 4ML VIAL NEB SCH ×4 (00:50→19:23)
[2021-10-24] MEDS: MEROPENEM 1 G in IV NORMAL SALINE 100 ML IV SCH ×3 (01:59→17:44)
--- NOTE | 2021-10-24 06:00 | NUR ---
Patient on Contact isolation for ESBL urine, On Tobramycin and Meropenem IVPB without A/R noted. Afebrile, no SOB,continue to monitor.
[2021-10-24] MEDS: FAMOTIDINE 20 MG TABLET GT SCH (06:54)
[2021-10-24] MEDS: RILUZOLE 50 MG TABLET GT SCH ×2 (06:54→17:31)
[2021-10-24] MEDS: ASCORBIC ACID 500 MG TABLET GT SCH (06:54)
[2021-10-24] MEDS: MULTIVITAMINS,THERAPEUTIC TABLET GT SCH (06:54)
[2021-10-24 07:30] VITALS: BP 94/61
[2021-10-24] MEDS: METOPROLOL TARTRATE 25 MG TABLET GT SCH ×2 (09:00→21:55)
[2021-10-24] MEDS: NORMAL SALINE FLUSH 10 ML DISP.SYRIN IV SCH ×2 (09:00→21:00)
[2021-10-24] MEDS: VITAMINS A AND D OINT TP SCH ×2 (09:09→21:56)
[2021-10-24] MEDS: REMEDY ESSENTIAL ZINC PASTE 113 GM TP SCH ×2 (09:09→21:56)
[2021-10-24] MEDS: HEPARIN SODIUM,PORCINE 5,000 UNITS/ML VIAL SQ SCH ×2 (09:10→22:00)
[2021-10-24] MEDS: HYDROGEN PEROXIDE 3% 118 ML BOTTLE TP SCH ×2 (09:15→21:49)
--- NOTE | 2021-10-24 11:22 | NUR ---
Continue on IVATB Meropenem 1 Gm IVATB,no adverse reaction noted,for UTI.continue on isolation precautions for ESBL in urine.
[2021-10-24] MEDS: DEXTROSE 5% IV SCH (20:00)
[2021-10-24] MEDS: TOBRAMYCIN SULFATE IV SCH (20:00)
[2021-10-25] MEDS: IPRATROPIUM BROMIDE 0.5 MG/2.5 ML NEBU NEB SCH ×4 (01:05→18:54)
[2021-10-25] MEDS: ACETYLCYSTEINE 10% 4ML VIAL NEB SCH ×4 (01:05→18:54)
[2021-10-25] MEDS: MEROPENEM 1 G in IV NORMAL SALINE 100 ML IV SCH ×3 (02:00→18:13)
[2021-10-25] MEDS: RILUZOLE 50 MG TABLET GT SCH ×2 (06:03→17:40)
[2021-10-25] MEDS: ASCORBIC ACID 500 MG TABLET GT SCH (06:03)
[2021-10-25] MEDS: MULTIVITAMINS,THERAPEUTIC TABLET GT SCH (06:03)
[2021-10-25] MEDS: FAMOTIDINE 20 MG TABLET GT SCH (06:03)
[2021-10-25] MEDS: VITAMINS A AND D OINT TP SCH ×2 (09:00→21:19)
[2021-10-25] MEDS: METOPROLOL TARTRATE 25 MG TABLET GT SCH ×2 (09:00→21:18)
[2021-10-25] MEDS: NORMAL SALINE FLUSH 10 ML DISP.SYRIN IV SCH ×2 (09:00→21:00)
[2021-10-25] MEDS: HEPARIN SODIUM,PORCINE 5,000 UNITS/ML VIAL SQ SCH ×2 (09:00→21:19)
[2021-10-25] MEDS: REMEDY ESSENTIAL ZINC PASTE 113 GM TP SCH ×2 (09:00→21:19)
[2021-10-25] MEDS: HYDROGEN PEROXIDE 3% 118 ML BOTTLE TP SCH ×2 (09:56→20:43)
--- NOTE | 2021-10-25 13:38 | NUR ---
Continue on IVATB Meropenem and tobramycin for uti and uri,no adverse reaction noted,midline on the R upper arm intact.
[2021-10-25] MEDS: DEXTROSE 5% IV SCH (20:00)
[2021-10-25] MEDS: TOBRAMYCIN SULFATE IV SCH (20:00)
--- NOTE | 2021-10-25 20:01 | NUR ---
Covid 19 test done as per [facility] requirement, pt's son notified.
--- NOTE | 2021-10-25 22:44 | NUR ---
Patient is still on Merrem and Nebcin IV for respiratory infection and UTI, no adverse reactions noted. GEORGE midline is intact and no signs of infection on the site. Afebrile, no respiratory distress noted, 02 sat is 98%, no signs of any pain or discomfort, kept clean and comfortable.
[2021-10-26] MEDS: ACETYLCYSTEINE 10% 4ML VIAL NEB SCH ×4 (00:40→20:26)
[2021-10-26] MEDS: IPRATROPIUM BROMIDE 0.5 MG/2.5 ML NEBU NEB SCH ×4 (00:40→20:26)
[2021-10-26] MEDS: MEROPENEM 1 G in IV NORMAL SALINE 100 ML IV SCH ×3 (02:00→17:50)
[2021-10-26] MEDS: ASCORBIC ACID 500 MG TABLET GT SCH (05:22)
[2021-10-26] MEDS: FAMOTIDINE 20 MG TABLET GT SCH (05:22)
[2021-10-26] MEDS: MULTIVITAMINS,THERAPEUTIC TABLET GT SCH (05:22)
[2021-10-26] MEDS: RILUZOLE 50 MG TABLET GT SCH ×2 (05:22→17:38)
[2021-10-26] MEDS: HYDROGEN PEROXIDE 3% 118 ML BOTTLE TP SCH ×2 (08:07→21:00)
[2021-10-26] MEDS: METOPROLOL TARTRATE 25 MG TABLET GT SCH ×2 (08:21→20:45)
[2021-10-26] MEDS: VITAMINS A AND D OINT TP SCH ×2 (08:22→20:45)
[2021-10-26] MEDS: HEPARIN SODIUM,PORCINE 5,000 UNITS/ML VIAL SQ SCH ×2 (08:22→20:50)
[2021-10-26] MEDS: REMEDY ESSENTIAL ZINC PASTE 113 GM TP SCH ×2 (08:22→20:45)
[2021-10-26] MEDS: NORMAL SALINE FLUSH 10 ML DISP.SYRIN IV SCH ×2 (09:00→20:42)
[2021-10-26] MEDS: DEXTROSE 5% IV SCH (20:41)
[2021-10-26] MEDS: TOBRAMYCIN SULFATE IV SCH (20:41)
[2021-10-27] MEDS: ACETYLCYSTEINE 10% 4ML VIAL NEB SCH ×4 (01:29→19:30)
[2021-10-27] MEDS: IPRATROPIUM BROMIDE 0.5 MG/2.5 ML NEBU NEB SCH ×4 (01:29→19:30)
[2021-10-27] MEDS: MEROPENEM 1 G in IV NORMAL SALINE 100 ML IV SCH ×3 (02:00→17:46)
[2021-10-27] MEDS: FAMOTIDINE 20 MG TABLET GT SCH (05:57)
[2021-10-27] MEDS: MULTIVITAMINS,THERAPEUTIC TABLET GT SCH (05:57)
[2021-10-27] MEDS: RILUZOLE 50 MG TABLET GT SCH ×2 (05:57→17:16)
[2021-10-27] MEDS: ASCORBIC ACID 500 MG TABLET GT SCH (05:57)
[2021-10-27 07:39] LABS: HEMATOCRIT 22.8 % (31.2-41.9); MEAN CORPUSCULAR HEMOGLOBIN 27.4 uug (24.7-32.8); MEAN CORPUSCULAR VOLUME 83.7 fL (75.5-95.3); PLATELET COUNT (AUTO) 759 K/uL (179-408)
[2021-10-27 08:02] LABS: CARBON DIOXIDE 27 mmol/L (21-32); CHLORIDE 97 mmol/L (98-107); CREATININE 0.4 mg/dL (0.6-1.3); GLUCOSE 109 mg/dL (74-106); POTASSIUM 4.6 mmol/L (3.5-5.1); UREA NITROGEN, BLOOD 31 mg/dL (7-18)
[2021-10-27] MEDS: METOPROLOL TARTRATE 25 MG TABLET GT SCH ×2 (08:40→21:00)
[2021-10-27] MEDS: NORMAL SALINE FLUSH 10 ML DISP.SYRIN IV SCH ×2 (08:40→21:00)
[2021-10-27] MEDS: VITAMINS A AND D OINT TP SCH ×2 (08:41→21:57)
[2021-10-27] MEDS: REMEDY ESSENTIAL ZINC PASTE 113 GM TP SCH ×2 (08:41→21:57)
[2021-10-27] MEDS: HEPARIN SODIUM,PORCINE 5,000 UNITS/ML VIAL SQ SCH ×2 (08:41→21:54)
[2021-10-27] MEDS: HYDROGEN PEROXIDE 3% 118 ML BOTTLE TP SCH ×2 (09:45→21:11)
[2021-10-27] MEDS: JEVITY 1.2 1000 ML LIQUID GT PRN (12:41)
--- NOTE | 2021-10-27 16:03 | NUR ---
Continue on Ivatb,no adverse reaction noted,midline on the R upper arm intact.
[2021-10-27] MEDS: DEXTROSE 5% IV SCH (20:00)
[2021-10-27] MEDS: TOBRAMYCIN SULFATE IV SCH (20:00)
[2021-10-28] MEDS: IPRATROPIUM BROMIDE 0.5 MG/2.5 ML NEBU NEB SCH ×4 (00:38→19:25)
[2021-10-28] MEDS: ACETYLCYSTEINE 10% 4ML VIAL NEB SCH ×4 (00:38→19:25)
[2021-10-28] MEDS: FAMOTIDINE 20 MG TABLET GT SCH (05:15)
[2021-10-28] MEDS: RILUZOLE 50 MG TABLET GT SCH ×2 (05:15→17:17)
[2021-10-28] MEDS: ASCORBIC ACID 500 MG TABLET GT SCH (05:15)
[2021-10-28] MEDS: MULTIVITAMINS,THERAPEUTIC TABLET GT SCH (05:15)
[2021-10-28] MEDS: HYDROGEN PEROXIDE 3% 118 ML BOTTLE TP SCH ×2 (08:03→21:47)
[2021-10-28] MEDS: METOPROLOL TARTRATE 25 MG TABLET GT SCH ×2 (08:20→21:05)
[2021-10-28] MEDS: REMEDY ESSENTIAL ZINC PASTE 113 GM TP SCH ×2 (08:23→21:05)
[2021-10-28] MEDS: VITAMINS A AND D OINT TP SCH ×2 (08:23→21:05)
[2021-10-28] MEDS: HEPARIN SODIUM,PORCINE 5,000 UNITS/ML VIAL SQ SCH ×2 (08:23→21:07)
[2021-10-28] MEDS: NORMAL SALINE FLUSH 10 ML DISP.SYRIN IV SCH ×2 (09:00→21:00)
--- NOTE | 2021-10-28 10:59 | NUR ---
Continue on Nebcin IVATB for pneumonia,no adverse reaction noted,midline on the R upper arm intact.
--- NOTE | 2021-10-28 13:21 | NUR ---
WOUND CARE CONSULT: PT PRESENTS WITH VERY BONY SACRAL AREA WITH SCARRING AND SOME DISCOLORATION. PT IS VERY THIN AND BONY. RECOMMEND PROTECT WITH FOAM DRESSING AND OFFLOAD. LOW AIRLOSS MATTRESS TO BE ORDERED. DISCUSSED SKIN PROTECTION WITH NURSING STAFF. MD IN AGREEMENT WITH PLAN OF CARE.
[2021-10-28] MEDS: DEXTROSE 5% IV SCH (20:23)
[2021-10-28] MEDS: TOBRAMYCIN SULFATE IV SCH (20:23)
[2021-10-29] MEDS: ACETYLCYSTEINE 10% 4ML VIAL NEB SCH ×4 (01:01→19:01)
[2021-10-29] MEDS: IPRATROPIUM BROMIDE 0.5 MG/2.5 ML NEBU NEB SCH ×4 (01:01→19:01)
[2021-10-29] MEDS: JEVITY 1.2 1000 ML LIQUID GT PRN (04:46)
[2021-10-29] MEDS: MULTIVITAMINS,THERAPEUTIC TABLET GT SCH (06:07)
[2021-10-29] MEDS: FAMOTIDINE 20 MG TABLET GT SCH (06:07)
[2021-10-29] MEDS: RILUZOLE 50 MG TABLET GT SCH ×2 (06:07→17:16)
[2021-10-29] MEDS: ASCORBIC ACID 500 MG TABLET GT SCH (06:07)
[2021-10-29] MEDS: HYDROGEN PEROXIDE 3% 118 ML BOTTLE TP SCH ×2 (07:40→20:46)
[2021-10-29] MEDS: METOPROLOL TARTRATE 25 MG TABLET GT SCH ×2 (09:02→20:24)
[2021-10-29] MEDS: HEPARIN SODIUM,PORCINE 5,000 UNITS/ML VIAL SQ SCH ×2 (09:02→20:25)
[2021-10-29] MEDS: VITAMINS A AND D OINT TP SCH ×2 (09:03→20:26)
[2021-10-29] MEDS: REMEDY ESSENTIAL ZINC PASTE 113 GM TP SCH ×2 (09:03→20:26)
[2021-10-29 09:05] LABS: HEMATOCRIT 25.7 % (31.2-41.9); MEAN CORPUSCULAR HEMOGLOBIN 27.7 uug (24.7-32.8); MEAN CORPUSCULAR VOLUME 83.2 fL (75.5-95.3); PLATELET COUNT (AUTO) 816 K/uL (179-408)
[2021-10-29 09:17] LABS: ALANINE AMINOTRANSFERASE 82 U/L (14-59); ALKALINE PHOSPHATASE 192 U/L (50-136); ASPARTATE AMINOTRANSFERASE 38 U/L (15-37); BILIRUBIN,TOTAL 0.3 mg/dL (0.2-1.0); CARBON DIOXIDE 27 mmol/L (21-32); CHLORIDE 94 mmol/L (98-107); CREATININE 0.4 mg/dL (0.6-1.3); GLUCOSE 135 mg/dL (74-106); POTASSIUM 4.7 mmol/L (3.5-5.1); TOTAL PROTEIN, SERUM 7.2 g/dL (6.4-8.2); UREA NITROGEN, BLOOD 30 mg/dL (7-18)
--- NOTE | 2021-10-29 14:38 | NUR ---
SONIA JJ N.P. (I.D) NOTIFIED WITH MESSAGE RE: CBC SHOWING WBC 25.0 ,PT. AFEBRILE AND STILL SHOWING GREEN TRACHEAL SECRETIONS BUT LESS AMOUNT THAN BEFORE.
--- NOTE | 2021-10-29 15:28 | NUR ---
SONIA JJ(Tank) CALLED AND WITH NEW ORDERS FOR CT SCAN WITH IV CONTRAST OF ABDOMEN,PELVIS AND THORAX TO RULE OUT ABSCESS.PT'S SON WHIT WAS NOTIFIED AND IN AGREEMENT WITH ORDER AND STATED THAT HE DOES NOT THINK THAT PT. HAD IV CONTRAST BEFORE BUT IT'S O.K TO DO IT AND HE STATED THAT HIS MOTHER NEVER HAD ALLERGIES BEFORE.
--- NOTE | 2021-10-29 17:00 | NUR ---
SEEN AND EAMINED BY DR. REGALADO AND WITH NNO.
--- NOTE | 2021-10-29 17:35 | NUR ---
PT. WAS SEEN AND EXAMINED BY DR. REGALADO AND AWARE OF LAB RESULTS TODAY AND ORDERS FROM I.D AND WITH NEW ORDERS CARRIED OUT.
[2021-10-29 19:11] LABS: BAND % (MANUAL) 8 % (0-10); LYMPHOCYTES % (MANUAL) 7 % (20-40); MONOCYTES % (MANUAL) 4 % (2-10); NEUTROPHILS % (MANUAL) 81 % (42-75)
--- NOTE | 2021-10-29 20:00 | NUR ---
Patient is afebrile but patient looks more tired, no signs of any respiratory distress noted. S/p IV antibiotics for PNA and UTI, no adverse reactions noted, fluids given as ordered, kept clean and comfortable. Will hold Feeding at [address] scan in the morning.
[2021-10-29] MEDS: NORMAL SALINE FLUSH 10 ML DISP.SYRIN IV SCH (20:43)
[2021-10-30] MEDS: IPRATROPIUM BROMIDE 0.5 MG/2.5 ML NEBU NEB SCH ×4 (00:35→19:00)
[2021-10-30] MEDS: ACETYLCYSTEINE 10% 4ML VIAL NEB SCH ×4 (00:35→19:00)
[2021-10-30] MEDS: JEVITY 1.2 1000 ML LIQUID GT PRN (00:35)
--- NOTE | 2021-10-30 03:00 | NUR ---
Patient is asleep, no signs of any distress, Held feeding at this time prior to CT scan in am.
[2021-10-30] MEDS: FAMOTIDINE 20 MG TABLET GT SCH (05:03)
[2021-10-30] MEDS: ASCORBIC ACID 500 MG TABLET GT SCH (05:04)
[2021-10-30] MEDS: RILUZOLE 50 MG TABLET GT SCH ×2 (05:04→17:09)
[2021-10-30] MEDS: MULTIVITAMINS,THERAPEUTIC TABLET GT SCH (05:04)
[2021-10-30] MEDS: NORMAL SALINE FLUSH 10 ML DISP.SYRIN IV SCH ×2 (09:00→21:05)
[2021-10-30] MEDS: METOPROLOL TARTRATE 25 MG TABLET GT SCH ×2 (09:00→21:00)
[2021-10-30] MEDS: VITAMINS A AND D OINT TP SCH ×2 (09:25→21:09)
[2021-10-30] MEDS: HEPARIN SODIUM,PORCINE 5,000 UNITS/ML VIAL SQ SCH ×2 (09:25→21:11)
[2021-10-30] MEDS: REMEDY ESSENTIAL ZINC PASTE 113 GM TP SCH ×2 (09:25→21:09)
[2021-10-30] MEDS: HYDROGEN PEROXIDE 3% 118 ML BOTTLE TP SCH ×2 (09:51→21:00)
[2021-10-30] MEDS: ACETAMINOPHEN 650 MG/20 ML UDC- SA PATIENTS-PAIN ONLY GT PRN (21:13)
[2021-10-30 22:00] VITALS: BP 100/62
--- NOTE | 2021-10-30 22:41 | NUR ---
Patient is afebrile, no signs of any distress noted. sleeping at this time, connected to vent, still has increased thick secretions, suctioned as needed, no shortness of breath noted, turned and repositioned, will continue monitor.
[2021-10-31] MEDS: IPRATROPIUM BROMIDE 0.5 MG/2.5 ML NEBU NEB SCH ×4 (00:31→18:55)
[2021-10-31] MEDS: ACETYLCYSTEINE 10% 4ML VIAL NEB SCH ×4 (00:31→18:55)
[2021-10-31] MEDS: JEVITY 1.2 1000 ML LIQUID GT PRN (00:44)
[2021-10-31] MEDS: FAMOTIDINE 20 MG TABLET GT SCH (05:07)
[2021-10-31] MEDS: ASCORBIC ACID 500 MG TABLET GT SCH (05:07)
[2021-10-31] MEDS: RILUZOLE 50 MG TABLET GT SCH ×2 (05:07→17:20)
[2021-10-31] MEDS: MULTIVITAMINS,THERAPEUTIC TABLET GT SCH (05:07)
[2021-10-31] MEDS: HYDROGEN PEROXIDE 3% 118 ML BOTTLE TP SCH ×2 (07:50→21:02)
[2021-10-31 08:13] VITALS: BP 82/57
[2021-10-31] MEDS: NORMAL SALINE FLUSH 10 ML DISP.SYRIN IV SCH ×2 (08:13→20:06)
[2021-10-31] MEDS: METOPROLOL TARTRATE 25 MG TABLET GT SCH (08:13)
[2021-10-31] MEDS: VITAMINS A AND D OINT TP SCH ×2 (08:14→21:00)
[2021-10-31] MEDS: REMEDY ESSENTIAL ZINC PASTE 113 GM TP SCH ×2 (08:14→21:00)
[2021-10-31] MEDS: HEPARIN SODIUM,PORCINE 5,000 UNITS/ML VIAL SQ SCH ×2 (08:16→21:00)
--- NOTE | 2021-10-31 08:50 | NUR ---
ORDER CLARIFIED AND CARRIED OUT FROM DR. PENN FOR SKIN ON SACRAL AREA WITH SCARRING AND DISCOLORATION (SKIN MANAGEMENT) RECOMMENDED BY WOUND CARE NURSE.
[2021-10-31] MEDS ORDERED: DEXTROSE 5% IV SCH (10:00)
[2021-10-31] MEDS ORDERED: TOBRAMYCIN SULFATE IV SCH (10:00)
--- NOTE | 2021-10-31 10:46 | NUR ---
Tap water enema administered until clear for constipation and effective with XL formed stool.
--- NOTE | 2021-10-31 12:09 | NUR ---
DR. TORRES WAS AWARE OF HYPOTENSION AND AWARE OF MANY TIMES LOPRESSOR WAS HELD D/T B/P NOT MEETING PARAMETERS AND ORDER CARRIED OUT.PT'S SON WHIT WAS NOTIFIED RE: LATEST ORDERS AND CURRENT CONDITION AND IN AGREEMENT WITH THEM AND HE STATED THAT HE KNOWS THAT SHE IS PRONE TO GET PNEUMONIAS AND THAT HE WILL VISIT PT. TOMORROW.
--- NOTE | 2021-10-31 13:00 | NUR ---
SEEN BY SONIA Mallory) AND WITH NIYAO.
[2021-10-31 17:31] LABS: CREATININE 0.5 mg/dL (0.6-1.3)
--- NOTE | 2021-10-31 18:35 | NUR ---
NEW ORDER WAS CARRIED OUT FROM SONIA Chilel.Bella) RECOMMENDED BY [facility] PHARMACIST ANGI.
[2021-10-31] MEDS: ACETAMINOPHEN 650 MG/20 ML UDC- SA PATIENTS-PAIN ONLY GT PRN (22:19)
[2021-11-01] MEDS: IPRATROPIUM BROMIDE 0.5 MG/2.5 ML NEBU NEB SCH ×4 (00:30→18:30)
[2021-11-01] MEDS: ACETYLCYSTEINE 10% 4ML VIAL NEB SCH ×4 (00:30→18:30)
[2021-11-01] MEDS: JEVITY 1.2 1000 ML LIQUID GT PRN (01:57)
[2021-11-01] MEDS: MULTIVITAMINS,THERAPEUTIC TABLET GT SCH (06:02)
[2021-11-01] MEDS: RILUZOLE 50 MG TABLET GT SCH ×2 (06:02→17:28)
[2021-11-01] MEDS: ASCORBIC ACID 500 MG TABLET GT SCH (06:02)
[2021-11-01] MEDS: FAMOTIDINE 20 MG TABLET GT SCH (06:02)
[2021-11-01] MEDS: HYDROGEN PEROXIDE 3% 118 ML BOTTLE TP SCH ×2 (09:16→18:38)
[2021-11-01] MEDS: NORMAL SALINE FLUSH 10 ML DISP.SYRIN IV SCH ×2 (09:30→21:00)
[2021-11-01] MEDS: VITAMINS A AND D OINT TP SCH ×2 (09:30→21:16)
[2021-11-01] MEDS: REMEDY ESSENTIAL ZINC PASTE 113 GM TP SCH ×2 (09:31→21:16)
[2021-11-01] MEDS: HEPARIN SODIUM,PORCINE 5,000 UNITS/ML VIAL SQ SCH ×2 (09:35→21:16)
[2021-11-01] MEDS: TOBRAMYCIN SULFATE IV SCH (22:00)
[2021-11-01] MEDS: DEXTROSE 5% IV SCH (22:00)
[2021-11-02] MEDS: IPRATROPIUM BROMIDE 0.5 MG/2.5 ML NEBU NEB SCH ×4 (01:26→19:00)
[2021-11-02] MEDS: ACETYLCYSTEINE 10% 4ML VIAL NEB SCH ×4 (01:26→19:00)
[2021-11-02] MEDS: FAMOTIDINE 20 MG TABLET GT SCH (05:34)
[2021-11-02] MEDS: RILUZOLE 50 MG TABLET GT SCH ×2 (05:34→17:07)
[2021-11-02] MEDS: MULTIVITAMINS,THERAPEUTIC TABLET GT SCH (05:34)
[2021-11-02] MEDS: ASCORBIC ACID 500 MG TABLET GT SCH (05:34)
[2021-11-02] MEDS: JEVITY 1.2 1000 ML LIQUID GT PRN ×2 (05:34→17:09)
[2021-11-02 08:48] LABS: HEMATOCRIT 23.1 % (31.2-41.9); MEAN CORPUSCULAR HEMOGLOBIN 27.4 uug (24.7-32.8); MEAN CORPUSCULAR VOLUME 82.7 fL (75.5-95.3); PLATELET COUNT (AUTO) 788 K/uL (179-408)
[2021-11-02 09:00] LABS: CARBON DIOXIDE 25 mmol/L (21-32); CHLORIDE 92 mmol/L (98-107); CREATININE 0.4 mg/dL (0.6-1.3); GLUCOSE 136 mg/dL (74-106); PHOSPHOROUS 2.6 mg/dL (2.5-4.9); UREA NITROGEN, BLOOD 34 mg/dL (7-18)
[2021-11-02] MEDS: HYDROGEN PEROXIDE 3% 118 ML BOTTLE TP SCH ×2 (09:00→21:54)
[2021-11-02] MEDS: VITAMINS A AND D OINT TP SCH ×2 (09:03→21:00)
[2021-11-02] MEDS: REMEDY ESSENTIAL ZINC PASTE 113 GM TP SCH ×2 (09:03→22:06)
[2021-11-02] MEDS: HEPARIN SODIUM,PORCINE 5,000 UNITS/ML VIAL SQ SCH ×2 (09:03→21:45)
--- NOTE | 2021-11-02 15:00 | NUR ---
PT. WAS NOTED BY CUSTOMER SERVICE SPECIALIST WITH RED SPOTS ON RT. ARM AND NOTIFIED CH. NURSE AND PICTURE WAS TAKEN AND DR. TORRES MAKING ROUNDS AT THIS TIME AND SHE EXAMINED HER AND WILL FOLLOW UP.
--- NOTE | 2021-11-02 16:09 | NUR ---
SEEN BY JAKE Valdes AND WITH NNO.
--- NOTE | 2021-11-02 18:35 | NUR ---
PT. WAS SEEN AND EXAMINED BY DR TORRES AND AWARE OF RT ARM RASH AND ASKED TO MONITOR AND F/U WITH DERMATOLOGY.PICTURE TAKEN.
[2021-11-02] MEDS: NORMAL SALINE FLUSH 10 ML DISP.SYRIN IV SCH ×3 (21:00→22:42)
[2021-11-03] MEDS: ACETYLCYSTEINE 10% 4ML VIAL NEB SCH ×4 (00:36→19:20)
[2021-11-03] MEDS: IPRATROPIUM BROMIDE 0.5 MG/2.5 ML NEBU NEB SCH ×4 (00:36→19:20)
[2021-11-03] MEDS: FAMOTIDINE 20 MG TABLET GT SCH (06:07)
[2021-11-03] MEDS: RILUZOLE 50 MG TABLET GT SCH ×2 (06:07→17:48)
[2021-11-03] MEDS: MULTIVITAMINS,THERAPEUTIC TABLET GT SCH (06:07)
[2021-11-03] MEDS: ASCORBIC ACID 500 MG TABLET GT SCH (06:07)
[2021-11-03] MEDS: HEPARIN SODIUM,PORCINE 5,000 UNITS/ML VIAL SQ SCH ×2 (08:01→20:32)
[2021-11-03] MEDS: VITAMINS A AND D OINT TP SCH ×2 (08:02→20:00)
[2021-11-03] MEDS: REMEDY ESSENTIAL ZINC PASTE 113 GM TP SCH ×2 (08:02→20:00)
[2021-11-03] MEDS: NORMAL SALINE FLUSH 10 ML DISP.SYRIN IV SCH ×2 (09:22→20:48)
[2021-11-03] MEDS: HYDROGEN PEROXIDE 3% 118 ML BOTTLE TP SCH ×2 (09:41→19:20)
[2021-11-03] MEDS: DEXTROSE 5% IV SCH (10:49)
[2021-11-03] MEDS: TOBRAMYCIN SULFATE IV SCH (10:49)
[2021-11-03] MEDS: JEVITY 1.2 1000 ML LIQUID GT PRN (11:37)
--- NOTE | 2021-11-03 22:30 | NUR ---
Still on Tobramycin IV for Pneumonia, no adverse reactions noted. Midline is intact and patent, patient looks tire, no signs of any distress noted. Turned and repositioned patient, will continue monitor.
[2021-11-04] MEDS: ACETYLCYSTEINE 10% 4ML VIAL NEB SCH ×4 (01:13→19:07)
[2021-11-04] MEDS: IPRATROPIUM BROMIDE 0.5 MG/2.5 ML NEBU NEB SCH ×4 (01:13→19:07)
[2021-11-04] MEDS: FAMOTIDINE 20 MG TABLET GT SCH (05:48)
[2021-11-04] MEDS: RILUZOLE 50 MG TABLET GT SCH ×2 (05:48→18:38)
[2021-11-04] MEDS: ASCORBIC ACID 500 MG TABLET GT SCH (05:48)
[2021-11-04] MEDS: MULTIVITAMINS,THERAPEUTIC TABLET GT SCH (05:48)
[2021-11-04] MEDS: JEVITY 1.2 1000 ML LIQUID GT PRN ×2 (05:52→23:00)
[2021-11-04] MEDS: HYDROGEN PEROXIDE 3% 118 ML BOTTLE TP SCH ×2 (07:40→21:15)
[2021-11-04] MEDS: VITAMINS A AND D OINT TP SCH ×2 (08:01→20:14)
[2021-11-04] MEDS: NORMAL SALINE FLUSH 10 ML DISP.SYRIN IV SCH ×2 (08:01→21:00)
[2021-11-04] MEDS: REMEDY ESSENTIAL ZINC PASTE 113 GM TP SCH ×2 (08:01→20:14)
[2021-11-04] MEDS: HEPARIN SODIUM,PORCINE 5,000 UNITS/ML VIAL SQ SCH ×2 (08:02→20:14)
--- NOTE | 2021-11-04 16:01 | NUR ---
Seen and examined by Dr Sherman food service driver ,for rashes on the R forearm and R hand,no new orders at this time.Pt continue on IVATB for pneumonia ,no adverse reaction noted.
[2021-11-04] MEDS: TOBRAMYCIN SULFATE IV SCH (22:00)
[2021-11-04] MEDS: DEXTROSE 5% IV SCH (22:00)
[2021-11-05] MEDS: ACETYLCYSTEINE 10% 4ML VIAL NEB SCH ×4 (00:40→18:30)
[2021-11-05] MEDS: IPRATROPIUM BROMIDE 0.5 MG/2.5 ML NEBU NEB SCH ×4 (00:40→18:30)
[2021-11-05] MEDS: FAMOTIDINE 20 MG TABLET GT SCH (05:15)
[2021-11-05] MEDS: MULTIVITAMINS,THERAPEUTIC TABLET GT SCH (05:15)
[2021-11-05] MEDS: RILUZOLE 50 MG TABLET GT SCH (05:15)
[2021-11-05] MEDS: ASCORBIC ACID 500 MG TABLET GT SCH (05:15)
[2021-11-05] MEDS: NORMAL SALINE FLUSH 10 ML DISP.SYRIN IV SCH (08:31)
[2021-11-05] MEDS: HEPARIN SODIUM,PORCINE 5,000 UNITS/ML VIAL SQ SCH (08:33)
[2021-11-05] MEDS: VITAMINS A AND D OINT TP SCH (08:34)
[2021-11-05] MEDS: REMEDY ESSENTIAL ZINC PASTE 113 GM TP SCH (08:34)
[2021-11-05] MEDS: HYDROGEN PEROXIDE 3% 118 ML BOTTLE TP SCH (09:03)
--- NOTE | 2021-11-05 09:34 | NUR ---
NOTED PATIENT NOT RESPONDING TO STIMULI, FURTHER ASSESSMENT SHOWS VITALS BP 103/77, PULSE 95, RESP. 16, TEMP. 97.3, SPO2 99%. BUT EYES ARE OPENED AND FIX WITH NO RESPONDS TO VERBAL OF PAINFUL STIMULI. CURRENTLY ON IV TOBRAMYCIN FOR PNA. LAST WBC 22.3. NOTIFIED DR HARTMANN WITH ORDERS TO TRANSFER PATIENT TO ER NOW FOR FURTHER EVALUATION. NOTED AND CARRIED OUT.
--- NOTE | 2021-11-05 09:40 | NUR ---
PT TRANSFERRED DOWN TO ER AT THIS TIME. BVM AND BACK UP TRACH AT BEDSIDE. REMAINS ON SAME VENT SETTINGS. WILL CONTINUE TO MONITOR.
[2021-11-05] MEDS ORDERED: IPRA0.2S48 NEB (12:07)
[2021-11-05] MEDS ORDERED: ACET-2154 GT (12:07)
[2021-11-05] MEDS ORDERED: ACET100V4 NEB (12:07)
[2021-11-05] MEDS ORDERED: HEPA500034 SQ (12:07)
[2021-11-05] MEDS ORDERED: ASCO500T10 GT (12:07)
[2021-11-05] MEDS ORDERED: LORA-258 GT (12:07)
[2021-11-05] MEDS ORDERED: RILU50TA14 GT (12:07)
[2021-11-05] MEDS ORDERED: MULT-594 GT (12:07)
[2021-11-05] MEDS ORDERED: FAMO-132 GT (12:07)
[2021-11-05] MEDS ORDERED: TOBR40VI2 IV (12:07)
[2021-11-05] MEDS ORDERED: LACT-209 GT (16:44)
[2022-07-17] MEDS ORDERED: TUBERCULIN,PURIF.PROT.DERIV. 5 TU/0.1 ML TEST ID SCH (09:00)
== END 2021-11-05 09:43 | disposition short-term general hospital (02) | DRG 207 ==
LOC: SA → UNDOLOA 11-05 09:30 → UNDODISIN 11-13 08:49
PROVIDERS: ADMIT Internal Medicine; ATTEND Internal Medicine Pulmonary Disease
PROC: 5A1955Z Respiratory Ventilation, Greater than 96 Consecutive Hours (ICD-10-PCS; principal; 2021-09-26)
DX: J96.11 Chronic respiratory failure with hypoxia (principal); E43 Unspecified severe protein-calorie malnutrition; J69.0 Pneumonitis due to inhalation of food and vomit; J15.1 Pneumonia due to Pseudomonas; D68.59 Other primary thrombophilia; E87.1 Hypo-osmolality and hyponatremia; G12.21 Amyotrophic lateral sclerosis; G93.40 Encephalopathy, unspecified; Z68.1 Body mass index [BMI] 19.9 or less, adult; Z99.11 Dependence on respirator [ventilator] status; N39.0 Urinary tract infection, site not specified; J96.12 Chronic respiratory failure with hypercapnia; D63.8 Anemia in other chronic diseases classified elsewhere; F41.9 Anxiety disorder, unspecified; I10 Essential (primary) hypertension; Z87.440 Personal history of urinary (tract) infections; R13.10 Dysphagia, unspecified; Z93.0 Tracheostomy status; R62.7 Adult failure to thrive; R73.03 Prediabetes; Z20.822 Contact with and (suspected) exposure to COVID-19; R21 Rash and other nonspecific skin eruption
CPT/HCPCS: 36415; 70030-TC; 71045; 80200; 83735; 84100; 84520; 85025; 87040; 87070; 87077; 87086; 94003; 94640; A6209; C1758; J0278; J2185; J3260; J3490; J3590; J7030; J7060; U0003

== ENCOUNTER → 2021-10-30 | Outpatient (CLI) | payer MEDICARE, OTHER ==
[~2021-10-30] MED LIST: IOHEXOL 300MG/ML 100 ML INFUS..BTL ONE; IV NORMAL SALINE 250 ML IV ONE; SWABABLE VALVE TRANSFER SET EA MC ONE
== END | disposition home or self-care (01) ==
LOC: RAD 10-29 15:33
PROVIDERS: ATTEND Registered Nurse
DX: L02.211 Cutaneous abscess of abdominal wall (principal); R91.8 Other nonspecific abnormal finding of lung field
CPT/HCPCS: 71260; 74177; Q9967; J7050

== ENCOUNTER 2021-11-05 09:37 | Inpatient (IN) | payer MEDICARE, OTHER ==
[~2021-11-05] VITALS: Ht 157.5 cm; Wt 56.0 kg
--- NOTE | 2021-11-05 10:00 | NUR ---
Dr Sheikh at the bedside for MSE.
--- NOTE | 2021-11-05 10:00 | NUR ---
Pt is transfered from sub acute per Dr Dougherty for possible sepsis. Afebrile and VSS.
[2021-11-05] MEDS ORDERED: IV NORMAL SALINE 1000 ML BAG IV ONE (10:15)
[2021-11-05 10:28] LABS: MEAN CORPUSCULAR VOLUME 81.5 fL (75.5-95.3); PLATELET COUNT (AUTO) 954 K/uL (179-408)
[2021-11-05 10:33] LABS: CARBON DIOXIDE 28 mmol/L (21-32); CHLORIDE 89 mmol/L (98-107); CREATININE 0.4 mg/dL (0.6-1.3); GLUCOSE 110 mg/dL (74-106); POTASSIUM 4.8 mmol/L (3.5-5.1); UREA NITROGEN, BLOOD 38 mg/dL (7-18)
--- NOTE | 2021-11-05 10:33 | NUR ---
COVID and MRSA swabs collected and sent to LAB.
[2021-11-05 10:47] LABS: ALANINE AMINOTRANSFERASE 92 U/L (14-59); ALKALINE PHOSPHATASE 183 U/L (50-136); ASPARTATE AMINOTRANSFERASE 44 U/L (15-37); BILIRUBIN,DIRECT 0.2 mg/dL (0.0-0.2); BILIRUBIN,TOTAL 0.3 mg/dL (0.2-1.0); TOTAL PROTEIN, SERUM 6.8 g/dL (6.4-8.2)
[2021-11-05] MEDS ORDERED: PIPERACILLIN SODIUM/TAZOBACTAM 3.375 G in IV DEXTROSE 5% 50 ML IV ONE (11:00)
[2021-11-05 11:02] LABS: *BILIRUBIN,URIN NEGATIVE (NEGATIVE); *BLOOD, URINE NEGATIVE (NEGATIVE); *CLARITY,URINE CLEAR (CLEAR); *COLOR,URINE YELLOW (YELLOW); *KETONES,URINE NEGATIVE (NEGATIVE); *UROBILINOGEN,URINE 0.2 E.U./dl (NORMAL); LEUKOCYTE ESTERASE ,URINE TRACE (NEGATIVE); NITRITE, URINE NEGATIVE (NEGATIVE); PH,URINE 7.5 (5.0-8.0); UGLUCOSE NEGATIVE (NEGATIVE)
[2021-11-05] MEDS ORDERED: PIPERACILLIN SODIUM/TAZO 3.375 GM VIAL ONE (11:11)
--- NOTE | 2021-11-05 11:30 | NUR ---
ER spoke to Dr Dougherty for CEZAR admit. Nursing coin machine supervisor notified, no beds available at this time, Pt to stay in ER.
[2021-11-05] MEDS ORDERED: HEPA500034 SQ (12:07)
[2021-11-05] MEDS ORDERED: RILU50TA14 GT (12:07)
[2021-11-05] MEDS ORDERED: TOBR40VI2 IV (12:07)
[2021-11-05] MEDS ORDERED: FAMO-132 GT (12:07)
[2021-11-05] MEDS ORDERED: ACET100V4 NEB (12:07)
[2021-11-05] MEDS ORDERED: ACET-2154 GT (12:07)
[2021-11-05] MEDS ORDERED: IPRA0.2S48 NEB (12:07)
[2021-11-05] MEDS ORDERED: ASCO500T10 GT (12:07)
[2021-11-05] MEDS ORDERED: MULT-594 GT (12:07)
[2021-11-05] MEDS ORDERED: LORA-258 GT (12:07)
--- NOTE | 2021-11-05 15:45 | NUR ---
received report from ER.
--- NOTE | 2021-11-05 16:05 | NUR ---
Resident admitted from ER, patient is aware, does not track, non-verbal, unable to make needs known. patient is a bedbound total care patient, bilateral upper and lower extremities are flaccid. patient is ventilator depended setting are ac16, vt, 500, +5, fio2 40%, rr even and non-labored at this time, lungs sounds are ronchi, minimal secretions noted at this time. Trach is in place and patent and at midline. Patient has a midline to left upper arm in place and patent. Gt in place and patent, 0 residual at this time. F/C in place and patent, draining clear yellow urine. Skin assessment performed patient noted with sacral wound measuring 1.5cm x 1.5cm, area cleaned and dressing applied. v.s upon admission wnl. no signs of pain or discomfort noted at this time. side rails up x2, call light within reach.
--- NOTE | 2021-11-05 16:10 | NUR ---
Hospitalist aware of patient arrival to unit.
--- NOTE | 2021-11-05 16:10 | NUR ---
patient admitted with personal bed including air loss mattress
[2021-11-05 16:25] VITALS: BP 107/71
[2021-11-05] MEDS ORDERED: LACT-209 GT (16:44)
[2021-11-05 17:20] LABS: RBC,URINE 0-3 /HPF (0-3)
[2021-11-05 17:21] LABS: BACTERIA,URINE FEW /HPF (NONE SEEN); SQUAMOUS EPITHELIAL CELL,UR FEW /HPF (NONE SEEN); WBC,URINE 0-3 /HPF (0-3); YEAST,URINE MODERATE /HPF (NONE SEEN)
[2021-11-05] MEDS ORDERED: ACETAMINOPHEN 325 MG TABLET-SA PATIENTS-PAIN ONLY GT PRN (18:45)
[2021-11-05] MEDS ORDERED: FLUCONAZOLE 200 MG/NS 100ML IV 100 MG in PREMIXED 1 EACH IV SCH (19:00)
[2021-11-05 20:00] VITALS: BP 108/67
[2021-11-05] MEDS: RILUTEK 50 MG GT SCH (20:15)
[2021-11-05] MEDS: ACETYLCYSTEINE 10% 4ML VIAL NEB SCH (20:28)
[2021-11-05] MEDS: IPRATROPIUM BROMIDE 0.5 MG/2.5 ML NEBU NEB SCH (20:28)
[2021-11-05] MEDS ORDERED: DOSING PER PHARMACY-AMIKACIN IV XX PRN (21:45)
[2021-11-05] MEDS: METRONIDAZOLE 500 MG TABLET PO SCH (22:31)
[2021-11-05] MEDS ORDERED: AMIKACIN 750 MG in IV DEXTROSE 5% 100 ML IV ONE (23:00)
[2021-11-06] MEDS ORDERED: AMIKACIN SULFATE 500 MG/2 ML VIAL ONE (00:27)
[2021-11-06] MEDS: ACETYLCYSTEINE 10% 4ML VIAL NEB SCH ×4 (01:49→21:31)
[2021-11-06] MEDS: IPRATROPIUM BROMIDE 0.5 MG/2.5 ML NEBU NEB SCH ×4 (01:50→21:30)
[2021-11-06 04:00] VITALS: BP 116/77
--- NOTE | 2021-11-06 05:57 | NUR ---
Pt resting in bed, alert to self. Moves eyes but unable to track. No distress noted. IV site intact and patent. GTube in place running Jevity at 60cc with no residual. Trach with mechanical ventilator in place. Pt suctioned as needed. Mosley draining to gravity, clear yellow urine. Comfort maintained. Will endorse to day shift.
[2021-11-06] MEDS: RILUTEK 50 MG GT SCH ×2 (06:34→17:23)
[2021-11-06] MEDS: METRONIDAZOLE 500 MG TABLET PO SCH ×3 (06:34→21:02)
[2021-11-06 06:35] LABS: HEMATOCRIT 24.7 % (31.2-41.9); MEAN CORPUSCULAR HEMOGLOBIN 27.9 uug (24.7-32.8); MEAN CORPUSCULAR VOLUME 83.9 fL (75.5-95.3); PLATELET COUNT (AUTO) 870 K/uL (179-408)
[2021-11-06 07:08] LABS: IRON, SERUM 17 ug/dL (50-175)
[2021-11-06 07:49] LABS: ALANINE AMINOTRANSFERASE 111 U/L (14-59); ALKALINE PHOSPHATASE 185 U/L (50-136); ASPARTATE AMINOTRANSFERASE 76 U/L (15-37); BILIRUBIN,TOTAL 0.2 mg/dL (0.2-1.0); CARBON DIOXIDE 27 mmol/L (21-32); CHLORIDE 95 mmol/L (98-107); CHOLESTEROL 90 mg/dL (<200); CREATININE 0.3 mg/dL (0.6-1.3); GLUCOSE 111 mg/dL (74-106); HDL CHOLESTEROL 24 mg/dL (40-60); MAGNESIUM 2.2 mg/dL (1.8-2.4); PHOSPHOROUS 4.1 mg/dL (2.5-4.9); POTASSIUM 4.2 mmol/L (3.5-5.1); TOTAL PROTEIN, SERUM 6.7 g/dL (6.4-8.2); TRIGLYCERIDES 110 MG/DL (30-150); UREA NITROGEN, BLOOD 33 mg/dL (7-18)
--- NOTE | 2021-11-06 08:00 | NUR ---
RECEIVED PATIENT IN BED WITH EYES OPEN, NON-VERBAL ON A VENT SET AT PORTEX 8, AC 16-5-40-500 SATURATING 98%. STARTED GT FEEDING ORDERED. PARTIAL AM CARE DONE. SR ON MONITOR. AFEBRILE
[2021-11-06 08:16] LABS: THYROID STIMULATING HORMONE 4.159 mIU/mL (0.358-3.740)
[2021-11-06] MEDS: ASCORBIC ACID 500 MG TABLET GT SCH (08:39)
[2021-11-06] MEDS: MULTIVITAMINS,THERAPEUTIC TABLET GT SCH (08:39)
[2021-11-06] MEDS: ACETAMINOPHEN 650 MG/20.3 ML LIQUID UDC GT PRN ×2 (08:39→21:06)
[2021-11-06] MEDS: FAMOTIDINE 20 MG TABLET GT SCH (08:39)
[2021-11-06] MEDS: FLUCONAZOLE 200 MG TABLET GT SCH (08:41)
[2021-11-06] MEDS ORDERED: Medication Not On Formulary EA (Multivitamins (Multivitamin) 1 EACH) GT SCH (09:00)
[2021-11-06] MEDS ORDERED: RILUZOLE 50 MG GT SCH (09:00)
[2021-11-06] MEDS ORDERED: TOBRAMYCIN SULFATE IV SCH (10:00)
[2021-11-06] MEDS ORDERED: DEXTROSE 5% IV SCH (10:00)
[2021-11-06] MEDS ORDERED: MIRALAX 17 GM POWD.PACK PO PRN (10:45)
--- NOTE | 2021-11-06 11:25 | NUR ---
WOUND CARE CONSULT: PT PRESENTS WITH SACRAL DEEP TISSUE INJURY IN EVOLUTION OVER PREVIOUS SCAR, PRESENT ON ADMISSION. PT IS VERY BONY. RECOMMENDATIONS MADE FOR SKIN PROTECTION AND WOUND CARE. DISCUSSED WITH NURSING STAFF. DR JAYRO ROCHA CALLED FOR SURGICAL CONSULT. PT IS ON FIRST STEP LAURA HERNANDEZ MD IN AGREEMENT WITH PLAN OF CARE. Addendum: 11/06/21 at 1129 by CORDELL SALAZAR RN Amended: Links added.
[2021-11-06 11:56] VITALS: BP 139/73
[2021-11-06] MEDS: DOCUSATE SODIUM 100 MG/10 ML LIQUID UDC GT SCH ×2 (13:00→21:01)
--- NOTE | 2021-11-06 13:22 | NUR ---
NO ACUTE CHANGE FROM MORNING ASSESSMENTS
[2021-11-06] MEDS: JEVITY 1.2 1000 ML LIQUID GT SCH (15:32)
[2021-11-06 15:55] VITALS: BP 136/77
[2021-11-06 20:00] VITALS: BP 137/80
[2021-11-06] MEDS: REMEDY ESSENTIAL ZINC PASTE 113 GM TOP SCH (21:02)
[2021-11-06] MEDS: AMIKACIN IV SCH (23:37)
[2021-11-06] MEDS: DEXTROSE 5% IV SCH (23:37)
[2021-11-07] VITALS: BP 103/66
[2021-11-07] MEDS: IPRATROPIUM BROMIDE 0.5 MG/2.5 ML NEBU NEB SCH ×4 (00:31→20:50)
[2021-11-07] MEDS: ACETYLCYSTEINE 10% 4ML VIAL NEB SCH ×4 (00:31→20:51)
--- NOTE | 2021-11-07 00:34 | NUR ---
PATIENT ON CONT FREY VENT WITH PORTEX # [address] AND SECURED, PT NOT VERY RESPONSIVE , CURRENT VENT SETTINGS, A/C 16, 500ML, PEEP5, FIO2 @ 40%, PT WITH MOSTLY CONTROLLED VENTILATION, SUCTIONED VERY LITTLE LIGHT TINGE YELL SECRETIONS, AND SUCTION MOUTH WITH YANKAUER, ALL VENT ALARMS GOOD, NO VENT CHANGES MADE, NEB INLINE RXS GIVEN, CHECK CUFF, PULSE OXY CONT AT BEDSIDE,SAT 98%.Bella CHAHALP Addendum: 11/07/21 at 0037 by SABRINA DUNCAN RT Amended: Links added.
[2021-11-07 04:00] VITALS: BP 137/73
[2021-11-07 05:06] LABS: ABG BASE EXCESS 7.5 mmol/L; ABG HCO3 32.7 mmol/L; ABG PCO2 50.3 mmHg (35.0-45.0); ABG PH 7.431 (7.350-7.450); ABG PO2 100.6 mmHg (75.0-100.0); ABG SITE LEFT BRACHIAL; COHb 0.6 % (0.5-1.5); MetHb 0.3 % (0.0-1.5); O2Hb 96.9 % (94.0-97.0); VENT MODE VENT - A/C; VT, ABG 500 mL
[2021-11-07 06:15] LABS: HEMATOCRIT 27.3 % (31.2-41.9); MEAN CORPUSCULAR HEMOGLOBIN 26.2 uug (24.7-32.8); PLATELET COUNT (AUTO) 968 K/uL (179-408)
[2021-11-07 06:25] LABS: ALANINE AMINOTRANSFERASE 93 U/L (14-59); ALKALINE PHOSPHATASE 177 U/L (50-136); ASPARTATE AMINOTRANSFERASE 38 U/L (15-37); BILIRUBIN,TOTAL 0.2 mg/dL (0.2-1.0); CARBON DIOXIDE 32 mmol/L (21-32); CHLORIDE 95 mmol/L (98-107); CREATININE 0.3 mg/dL (0.6-1.3); GLUCOSE 125 mg/dL (74-106); MAGNESIUM 2.2 mg/dL (1.8-2.4); PHOSPHOROUS 3.9 mg/dL (2.5-4.9); POTASSIUM 4.8 mmol/L (3.5-5.1); TOTAL PROTEIN, SERUM 6.8 g/dL (6.4-8.2); UREA NITROGEN, BLOOD 27 mg/dL (7-18)
[2021-11-07] MEDS: RILUTEK 50 MG GT SCH ×2 (06:31→17:05)
[2021-11-07] MEDS: METRONIDAZOLE 500 MG TABLET PO SCH ×3 (06:31→21:26)
[2021-11-07 07:59] VITALS: BP 163/93
--- NOTE | 2021-11-07 08:00 | NUR ---
RESTING ON MECHANICAL VENT AC 16-5-40-500. SATURATING 100%. NO SIGNS OF DISTRESS OR PAIN. SR/ST ON MONITOR. CONTINUE CEZAR MONITORING
[2021-11-07] MEDS: ASCORBIC ACID 500 MG TABLET GT SCH (08:56)
[2021-11-07] MEDS: MULTIVITAMINS,THERAPEUTIC TABLET GT SCH (08:56)
[2021-11-07] MEDS: DOCUSATE SODIUM 100 MG/10 ML LIQUID UDC GT SCH ×2 (08:56→21:26)
[2021-11-07] MEDS: REMEDY ESSENTIAL ZINC PASTE 113 GM TOP SCH ×2 (08:57→21:26)
[2021-11-07] MEDS: FLUCONAZOLE 200 MG TABLET GT SCH (08:57)
[2021-11-07] MEDS: FAMOTIDINE 20 MG TABLET GT SCH (08:57)
--- NOTE | 2021-11-07 11:53 | NUR ---
LARGE SOFT BROWNISH STOOL NOTED, NO SIGNS OF IMPACTION AM CARE DONE. SEEN BY DR REGALADO SEE NOTES
[2021-11-07 15:24] VITALS: BP 157/99
[2021-11-07] MEDS: JEVITY 1.2 1000 ML LIQUID GT SCH (17:06)
[2021-11-07] MEDS: LORAZEPAM 0.5 MG TABLET GT PRN (17:07)
[2021-11-07 18:18] VITALS: BP 118/80
[2021-11-07 19:48] VITALS: BP 138/88
[2021-11-07] MEDS: AMIKACIN IV SCH (23:35)
[2021-11-07] MEDS: DEXTROSE 5% IV SCH (23:35)
[2021-11-07] MEDS: REMEDY ESSENTIAL ZINC PASTE 113 GM TOP PRN (23:49)
[2021-11-07] MEDS: ACETAMINOPHEN 650 MG/20.3 ML LIQUID UDC GT PRN (23:49)
[2021-11-08 00:04] VITALS: BP 147/87
[2021-11-08] MEDS: IPRATROPIUM BROMIDE 0.5 MG/2.5 ML NEBU NEB SCH ×4 (00:28→22:22)
[2021-11-08] MEDS: ACETYLCYSTEINE 10% 4ML VIAL NEB SCH ×4 (00:28→22:23)
--- NOTE | 2021-11-08 02:10 | NUR ---
PATIENT ON CONT FREY VENT WITH PORTEX [address] AND SECURED, WITH CURRENT VENT SETTINGS, A/C 16 ,500ML, PEEP5 , 40%, NEB INLINE RXS GIVEN, SUCTION PRN , VERY WEAK COUGH AND GAG REFLEX, CONT PULSE OXY AT BEDSIDE, NO VENT CHANGES MADE . Bella DUNCAN RCP Addendum: 11/08/21 at 0212 by SABRINA DUNCAN RT Amended: Links added.
[2021-11-08 04:38] VITALS: BP 136/78
[2021-11-08] MEDS: METRONIDAZOLE 500 MG TABLET PO SCH ×3 (06:00→22:05)
[2021-11-08] MEDS: RILUTEK 50 MG GT SCH ×2 (06:00→17:35)
--- NOTE | 2021-11-08 08:00 | NUR ---
RECEIVED PATIENT A CEZAR STATUS EYES WIDELY OPEN BUT NO EYE CONTACT. SATURATING 100% ON MECHANICAL VENT SETS AT AC 16-5-40-500. REQUIRES OCCASIONAL CLOSE SUCTIONING VIA TRACH WITH MINIMAL THICK WHITE SECRETION. ORAL CARE DONE. TOLERATING FEEDING WELL. ST ON MONITOR AT 103/MINS. AFEBRILE
[2021-11-08 08:20] VITALS: BP 113/81
[2021-11-08] MEDS: FLUCONAZOLE 200 MG TABLET GT SCH (08:30)
[2021-11-08] MEDS: ACETAMINOPHEN 650 MG/20.3 ML LIQUID UDC GT PRN ×2 (08:31→22:05)
[2021-11-08] MEDS: MULTIVITAMINS,THERAPEUTIC TABLET GT SCH (08:31)
[2021-11-08] MEDS: FAMOTIDINE 20 MG TABLET GT SCH (08:31)
[2021-11-08] MEDS: REMEDY ESSENTIAL ZINC PASTE 113 GM TOP SCH ×2 (08:31→20:40)
[2021-11-08] MEDS: DOCUSATE SODIUM 100 MG/10 ML LIQUID UDC GT SCH ×2 (08:31→20:28)
[2021-11-08] MEDS: ASCORBIC ACID 500 MG TABLET GT SCH (08:31)
[2021-11-08 11:48] LABS: *OCCULT BLOOD STOOL NEGATIVE (NEGATIVE)
[2021-11-08 12:03] VITALS: BP 114/80
[2021-11-08] MEDS: JEVITY 1.2 1000 ML LIQUID GT SCH (12:38)
[2021-11-08 16:00] VITALS: BP 112/83
[2021-11-08 20:03] VITALS: BP 127/82
[2021-11-09] VITALS (7 sets, daily range): BP systolic 91–135; BP diastolic 52–87
[2021-11-09] MEDS: DEXTROSE 5% IV SCH ×2 (00:53→21:15)
[2021-11-09] MEDS: AMIKACIN IV SCH ×2 (00:53→21:15)
[2021-11-09] MEDS: ACETYLCYSTEINE 10% 4ML VIAL NEB SCH ×4 (01:27→19:20)
[2021-11-09] MEDS: IPRATROPIUM BROMIDE 0.5 MG/2.5 ML NEBU NEB SCH ×4 (01:27→19:20)
--- NOTE | 2021-11-09 01:43 | NUR ---
PATIENT ON CONT FREY VENT WITH TRACH IN PLACE AND SECURED, NOT VERY RESPONSIVE, VENT SETTINGS, A/C 16 , 500ML, PEEP5, FIO2 @ 40%, MOSTLY WITH CONTROLLED VENTILATION, VERY WEAK COUGH AND GAG REFLEX, NO VENT CHANGES MADE, NEB INLINE RXS. Bella DUNCAN RCP Addendum: 11/09/21 at 0145 by SABRINA DUNCAN RT Amended: Links added.
[2021-11-09] MEDS: RILUTEK 50 MG GT SCH ×2 (05:31→18:05)
[2021-11-09] MEDS: METRONIDAZOLE 500 MG TABLET PO SCH ×2 (05:31→13:35)
[2021-11-09 06:21] LABS: HEMATOCRIT 28.2 % (31.2-41.9); MEAN CORPUSCULAR HEMOGLOBIN 27.3 uug (24.7-32.8); MEAN CORPUSCULAR VOLUME 83.8 fL (75.5-95.3)
--- NOTE | 2021-11-09 08:00 | NUR ---
Pt non responsive. Vent settings as ordered. Restarted G-tube feeding flushed with NS. Placement audible in stomach. call light is within reach.
[2021-11-09] MEDS: ASCORBIC ACID 500 MG TABLET GT SCH (08:07)
[2021-11-09] MEDS: FAMOTIDINE 20 MG TABLET GT SCH (08:07)
[2021-11-09] MEDS: MULTIVITAMINS,THERAPEUTIC TABLET GT SCH (08:07)
[2021-11-09] MEDS: DOCUSATE SODIUM 100 MG/10 ML LIQUID UDC GT SCH ×3 (08:07→20:41)
[2021-11-09] MEDS: FLUCONAZOLE 200 MG TABLET GT SCH (08:08)
[2021-11-09] MEDS: REMEDY ESSENTIAL ZINC PASTE 113 GM TOP SCH ×2 (08:08→20:42)
[2021-11-09 08:25] LABS: PLATELET COUNT (AUTO) 1082 K/uL (179-408)
[2021-11-09 08:42] LABS: CARBON DIOXIDE 33 mmol/L (21-32); CHLORIDE 95 mmol/L (98-107); CREATININE 0.4 mg/dL (0.6-1.3); GLUCOSE 171 mg/dL (74-106); PHOSPHOROUS 3.2 mg/dL (2.5-4.9); POTASSIUM 4.9 mmol/L (3.5-5.1); UREA NITROGEN, BLOOD 30 mg/dL (7-18)
[2021-11-09 17:38] LABS: BAND % (MANUAL) 4 % (0-10); LYMPHOCYTES % (MANUAL) 6 % (20-40); MONOCYTES % (MANUAL) 5 % (2-10); NEUTROPHILS % (MANUAL) 85 % (42-75)
--- NOTE | 2021-11-09 20:00 | NUR ---
RECEIVED PATIENT IN BED, EYES OPEN BUT NO TRACKING, HOB ELEVATED, TELE MONITOR SINUS TACHY 118, ON VENT SETTINGS TOLERATE WELL SAT WNL 95%, CONT ABX PNA/UTI, IRWIN CATH PATENT, DRAINING WITH YELLOW COLOR URINE IN MODERATE AMOUNT, CONT TO MONITOR.
[2021-11-09] MEDS: JEVITY 1.2 1000 ML LIQUID GT SCH (20:13)
[2021-11-09] MEDS: ACETAMINOPHEN 650 MG/20.3 ML LIQUID UDC GT PRN (20:21)
[2021-11-09] MEDS: METRONIDAZOLE 500 MG TABLET GT SCH (21:15)
[2021-11-10] MEDS: ACETYLCYSTEINE 10% 4ML VIAL NEB SCH ×4 (00:30→19:20)
[2021-11-10] MEDS: IPRATROPIUM BROMIDE 0.5 MG/2.5 ML NEBU NEB SCH ×4 (00:30→19:20)
[2021-11-10 04:08] VITALS: BP 129/90
[2021-11-10] MEDS: RILUTEK 50 MG GT SCH ×2 (05:16→17:05)
[2021-11-10] MEDS: METRONIDAZOLE 500 MG TABLET GT SCH ×3 (05:16→21:38)
[2021-11-10] MEDS: MIRALAX 17 GM POWD.PACK GT PRN (05:42)
[2021-11-10 06:54] LABS: HEMATOCRIT 28.6 % (31.2-41.9); MEAN CORPUSCULAR HEMOGLOBIN 27.6 uug (24.7-32.8); MEAN CORPUSCULAR VOLUME 83.8 fL (75.5-95.3)
[2021-11-10 07:16] LABS: CARBON DIOXIDE 33 mmol/L (21-32); CHLORIDE 91 mmol/L (98-107); CREATININE 0.3 mg/dL (0.6-1.3); GLUCOSE 169 mg/dL (74-106); MAGNESIUM 1.9 mg/dL (1.8-2.4); PHOSPHOROUS 3.7 mg/dL (2.5-4.9); POTASSIUM 5.1 mmol/L (3.5-5.1); UREA NITROGEN, BLOOD 26 mg/dL (7-18)
[2021-11-10 07:18] LABS: PLATELET COUNT (AUTO) 1077 K/uL (179-408)
[2021-11-10 07:30] VITALS: BP 101/72
--- NOTE | 2021-11-10 08:00 | NUR ---
Suctioned patient minimal secretions noted. G tube started and running as ordered. PT repositioned for comfort. Vent settings as ordered. Call light is within reach.
[2021-11-10] MEDS: ASCORBIC ACID 500 MG TABLET GT SCH (08:37)
[2021-11-10] MEDS: FAMOTIDINE 20 MG TABLET GT SCH (08:37)
[2021-11-10] MEDS: DOCUSATE SODIUM 100 MG/10 ML LIQUID UDC GT SCH ×2 (08:38→20:12)
[2021-11-10] MEDS: FLUCONAZOLE 200 MG TABLET GT SCH (08:38)
[2021-11-10] MEDS: REMEDY ESSENTIAL ZINC PASTE 113 GM TOP SCH ×2 (08:39→21:38)
[2021-11-10] MEDS: MULTIVITAMINS,THERAPEUTIC TABLET GT SCH (08:39)
[2021-11-10 11:54] VITALS: BP 143/86
[2021-11-10] MEDS: ACETAMINOPHEN 650 MG/20.3 ML LIQUID UDC GT PRN ×2 (12:13→20:13)
[2021-11-10] MEDS: REMEDY ESSENTIAL ZINC PASTE 113 GM TOP PRN (12:13)
[2021-11-10] MEDS: ASPIRIN 81 MG TAB.CHEW GT SCH (14:43)
[2021-11-10 15:02] LABS: FERRITIN 152 ng/mL (8-252)
[2021-11-10 15:55] VITALS: BP 122/94
--- NOTE | 2021-11-10 16:00 | NUR ---
Report given to Charge Nurse Karen MILLIGAN Sub acute. Update Picture taken on [place] area, sacral area, upper extremities ecchymosis. Rapid covid negative. PT ok to be transferred by Pulmonary -ANGÉLICA Ceja, and DR salmon. PT o2 sat has been @ 97-99% on T piece humidified at 10lit with 40% FI02. Pt has less secretion than yesterday. No residual noted on G-tube. Addendum: 11/10/21 at 1621 by SYLVESTER MARIO RN WRONG ENTRY
[2021-11-10] MEDS: JEVITY 1.2 1000 ML LIQUID GT SCH (17:37)
--- NOTE | 2021-11-10 18:53 | NUR ---
No residual noted Pt tolerating feeding. Call light is within reach.
--- NOTE | 2021-11-10 19:35 | NUR ---
PATIENT EYES OPEN, HOB ELEVATED, NO SOB NO CHEST PAIN, TELE MONITOR SINUS RHYTHM SINUS TACHY, NO S/S OF PAIN AT THIS TIME, RENDERED GOOD ORAL CARE AND SKIN CARE. ON VENT TOLERATE WELL, ON GTF TOLERATE WELL, NO N/V NO DIARRHEA NOTED, CONT TO MONITOR.
[2021-11-10 20:29] VITALS: BP 121/86
[2021-11-10] MEDS: DEXTROSE 5% IV SCH (20:49)
[2021-11-10] MEDS: AMIKACIN IV SCH (20:49)
[2021-11-11 00:13] VITALS: BP 124/77
[2021-11-11] MEDS: IPRATROPIUM BROMIDE 0.5 MG/2.5 ML NEBU NEB SCH ×4 (00:30→21:12)
[2021-11-11] MEDS: ACETYLCYSTEINE 10% 4ML VIAL NEB SCH ×4 (00:30→21:12)
[2021-11-11 04:15] VITALS: BP 119/79
[2021-11-11] MEDS: METRONIDAZOLE 500 MG TABLET GT SCH ×3 (05:28→21:00)
[2021-11-11] MEDS: RILUTEK 50 MG GT SCH ×2 (05:29→17:12)
--- NOTE | 2021-11-11 06:23 | NUR ---
PATIENT EYES OPEN BUT NO TRACKING, TELE MONITOR SINUS RHYTHM SINUS TACHY, HOB ELEVATED, NO SOB NO CHEST PAIN, ON VENT TOLERATE WELL, NO N/V NO DIARRHEA NOTED, CONT ABX FOR PNA/UTI WITH ADVERSE REACTION NOTED, TURNED AND REPOSITION, IRWIN CATH PATENT, KEPT COMFORTABLE.
[2021-11-11 06:34] LABS: HEMATOCRIT 28.7 % (31.2-41.9); MEAN CORPUSCULAR HEMOGLOBIN 27.3 uug (24.7-32.8); MEAN CORPUSCULAR VOLUME 84.6 fL (75.5-95.3); PLATELET COUNT (AUTO) 984 K/uL (179-408)
[2021-11-11 06:48] LABS: CARBON DIOXIDE 38 mmol/L (21-32); CHLORIDE 89 mmol/L (98-107); CREATININE 0.3 mg/dL (0.6-1.3); GLUCOSE 175 mg/dL (74-106); UREA NITROGEN, BLOOD 28 mg/dL (7-18)
[2021-11-11 07:30] VITALS: BP 107/77
--- NOTE | 2021-11-11 08:00 | NUR ---
PATIENT RESTING COMFORTABLY WITH CURRENT VENT SETTINGS 16-40-500-5 SATURATING 93%, ST ON MONITOR 110. CONTINUE WITH CEZAR MONITORING
[2021-11-11 08:06] LABS: *IMMUNOGLOBULIN G, SERUM 1236 mg/dL (586-1602); IMMUNOGLOBULIN A, SERUM 986 mg/dL (87-352); IMMUNOGLOBULIN M, SERUM 89 mg/dL (26-217)
[2021-11-11] MEDS: ACETAMINOPHEN 650 MG/20.3 ML LIQUID UDC GT PRN (08:47)
[2021-11-11] MEDS: ASPIRIN 81 MG TAB.CHEW GT SCH (08:47)
[2021-11-11] MEDS: ASCORBIC ACID 500 MG TABLET GT SCH (08:47)
[2021-11-11] MEDS: FAMOTIDINE 20 MG TABLET GT SCH (08:47)
[2021-11-11] MEDS: MULTIVITAMINS,THERAPEUTIC TABLET GT SCH (08:47)
[2021-11-11] MEDS: DOCUSATE SODIUM 100 MG/10 ML LIQUID UDC GT SCH ×2 (08:47→20:48)
[2021-11-11] MEDS: FLUCONAZOLE 200 MG TABLET GT SCH (08:47)
[2021-11-11] MEDS: REMEDY ESSENTIAL ZINC PASTE 113 GM TOP SCH ×2 (08:48→20:58)
--- NOTE | 2021-11-11 10:00 | NUR ---
SEEN BY DOE LEBRON FOR HEMATOLOGY FOLLOW-UP SEE NOTES. WILL START ON FERRLICIT IV
[2021-11-11] MEDS: GLUCERNA 1.2 1000ML LIQUID GT PRN (10:59)
[2021-11-11 11:07] LABS: A/G RATIO 0.5 (0.7-1.7); ALPHA-1-GLOBULIN 0.5 g/dL (0.0-0.4); ALPHA-2-GLOBULIN 1.1 g/dL (0.4-1.0); BETA GLOBULIN 1.4 g/dL (0.7-1.3); GAMMA GLOBULIN 1.2 g/dL (0.4-1.8); GLOBULIN, TOTAL 4.1 g/dL (2.2-3.9); M-SPIKE Not Observed g/dL (Not Observed)
[2021-11-11 11:54] VITALS: BP 99/70
--- NOTE | 2021-11-11 12:00 | NUR ---
NO ACUTE CHANGE FROM MORNING ASSESSMENT, TOLERATING FEEDING WELL GLUCERNA 1.2 AT 60MLS/HR
[2021-11-11] MEDS: CEFTAZIDIME 2 G in IV DEXTROSE 5% 100 ML IV SCH ×2 (13:31→21:00)
[2021-11-11] MEDS: SOD FERRIC GLUC COMPLX/SUCROSE 125 MG in IV NORMAL SALINE 100 ML IV SCH (14:37)
[2021-11-11 16:01] VITALS: BP 121/88
[2021-11-11] MEDS: LORAZEPAM 0.5 MG TABLET GT PRN (17:34)
--- NOTE | 2021-11-11 17:41 | NUR ---
HEART RATE SUSTAINING ON 115/MIN FROM HEART MONITOR ATIVAN O.5 MG GIVEN VIA GT. OBSERVE
--- NOTE | 2021-11-11 17:45 | NUR ---
ADMITTED FROM DOCTORS OFFICE VIA ER A 68 YO MALE WITH ADMITTING DX OF CHEST PAIN ALERT AND ORIENTED X3. INITIAL ADMISSION ASSESSMENT INITIATED. SR ON MONITOR Addendum: 11/11/21 at 1752 by LUDMILA HARDY RN ERROR
--- NOTE | 2021-11-11 19:30 | NUR ---
PATIENT EYES OPEN BUT NO TRACKING, HOB ELEVATED, TELE MONITOR SINUS RHYTHM AT THIS TIME, ON VENT TOLERATE WELL, NO DESATURATION NOTED, CONT ABX FOR PNA, CONT TO MONITOR.
[2021-11-11 20:25] VITALS: BP 95/72
[2021-11-12] VITALS: BP 107/71
[2021-11-12] MEDS: ACETYLCYSTEINE 10% 4ML VIAL NEB SCH ×4 (01:58→20:45)
[2021-11-12] MEDS: IPRATROPIUM BROMIDE 0.5 MG/2.5 ML NEBU NEB SCH ×4 (01:58→20:44)
--- NOTE | 2021-11-12 02:02 | NUR ---
PT ON CONT FREY VENT WITH PORTEX # [address], PT WITH VENT SETTINGS, A/C 16 , 500ML, PEEP5, 40%, MOSTLY WITH CONTROLLED VENTILATION, WEAK GAG REFLEX, SUCTION PR0N, CHANGE HME, ALL VENT ALARMS GOOD, NO VENT CHANGES MADE.Bella CHAHALP Addendum: 11/12/21 at 0204 by SABRINA DUNCAN RT Amended: Links added.
[2021-11-12 04:10] VITALS: BP 132/84
[2021-11-12] MEDS: METRONIDAZOLE 500 MG TABLET GT SCH ×3 (05:04→21:12)
[2021-11-12] MEDS: CEFTAZIDIME 2 G in IV DEXTROSE 5% 100 ML IV SCH ×3 (05:04→21:12)
[2021-11-12] MEDS: RILUTEK 50 MG GT SCH ×2 (05:04→18:57)
[2021-11-12 06:14] LABS: HEMATOCRIT 28.5 % (31.2-41.9); MEAN CORPUSCULAR HEMOGLOBIN 27.7 uug (24.7-32.8); MEAN CORPUSCULAR VOLUME 84.4 fL (75.5-95.3)
--- NOTE | 2021-11-12 06:22 | NUR ---
PATIENT OBTUNDED, HOB ELEVATED NO SOB NO CHEST PAIN, ON VENT TOLERATE WELL, SAT WNL, ON GTF TOLERATE WELL. PATIENT HAS NO S/S OF PAIN AT THIS TIME. TELE MONITOR SINUS RHYTHM, TX CONT ON SACRAL WOUND, CONT ABX FOR PNA, WITH NO ADVERSE REACTION NOTED. CONT TO MONITOR.
[2021-11-12 06:36] LABS: CARBON DIOXIDE 38 mmol/L (21-32); CHLORIDE 87 mmol/L (98-107); CREATININE 0.4 mg/dL (0.6-1.3); GLUCOSE 183 mg/dL (74-106); MAGNESIUM 1.9 mg/dL (1.8-2.4); PHOSPHOROUS 3.3 mg/dL (2.5-4.9); POTASSIUM 4.8 mmol/L (3.5-5.1); UREA NITROGEN, BLOOD 27 mg/dL (7-18); URIC ACID 2.8 mg/dL (2.6-6.0)
[2021-11-12 06:44] LABS: PLATELET COUNT (AUTO) 1010 K/uL (179-408)
[2021-11-12 07:08] LABS: BAND % (MANUAL) 3 % (0-10); LYMPHOCYTES % (MANUAL) 10 % (20-40); METAMYELOCYTES % 1 % (0-1); MONOCYTES % (MANUAL) 2 % (2-10); NEUTROPHILS % (MANUAL) 84 % (42-75)
--- NOTE | 2021-11-12 07:17 | NUR ---
PATIENT WBC 26.6, PLATELET 1010, DR. THAO SEEN THE RESULTS, ENDORSED TO AM RN NURSE.
[2021-11-12 07:38] LABS: THYROID STIMULATING HORMONE 2.485 mIU/mL (0.358-3.740)
[2021-11-12] MEDS: MULTIVITAMINS,THERAPEUTIC TABLET GT SCH (08:38)
[2021-11-12] MEDS: FAMOTIDINE 20 MG TABLET GT SCH (08:38)
[2021-11-12] MEDS: DOCUSATE SODIUM 100 MG/10 ML LIQUID UDC GT SCH ×2 (08:38→21:12)
[2021-11-12] MEDS: ASCORBIC ACID 500 MG TABLET GT SCH (08:38)
[2021-11-12] MEDS: REMEDY ESSENTIAL ZINC PASTE 113 GM TOP SCH ×2 (08:38→21:12)
[2021-11-12] MEDS: ASPIRIN 81 MG TAB.CHEW GT SCH (08:38)
[2021-11-12] MEDS: FLUCONAZOLE 200 MG TABLET GT SCH (08:40)
[2021-11-12] MEDS: ACETAMINOPHEN 650 MG/20.3 ML LIQUID UDC GT PRN (10:42)
[2021-11-12] MEDS: MIRALAX 17 GM POWD.PACK GT PRN (10:42)
[2021-11-12 11:20] VITALS: BP 116/68
--- NOTE | 2021-11-12 11:46 | NUR ---
SEEN BY DR REGALADO FOR PULMONARY FOLLOW-UP SEE NOTES. TEMP 100.2 TYLENOL PRN GIVEN VIA GT
[2021-11-12] MEDS: VANCOMYCIN IV 750 MG in IV DEXTROSE 5% 250 ML IV SCH ×2 (13:49→22:54)
[2021-11-12] MEDS: SOD FERRIC GLUC COMPLX/SUCROSE 125 MG in IV NORMAL SALINE 100 ML IV SCH (14:29)
[2021-11-12 15:51] VITALS: BP 104/67
[2021-11-12 20:00] VITALS: BP 145/89
[2021-11-13] VITALS: BP 111/62
--- NOTE | 2021-11-13 01:21 | NUR ---
PATIENT ON CONT FREY VENT WITH PORTEX # [address] AND SECURED, WITH SETTINGS, A/C 16, 500ML,PEEP5 , FIO2 @ 40%, SUCTIONED VERY LIGHT PALE YELL TINGE SECRETIONS, PT WITH NO VERBAL RESPONSE, VERY LIGHT GAG REFLEX, NEB INLINE TOLL WELL, NO VENT CHANGES MADE, D DAKOTA MENA Addendum: 11/13/21 at 0124 by SABRINA DUNCAN RT Amended: Links added.
[2021-11-13] MEDS: IPRATROPIUM BROMIDE 0.5 MG/2.5 ML NEBU NEB SCH ×4 (01:48→19:39)
[2021-11-13] MEDS: ACETYLCYSTEINE 10% 4ML VIAL NEB SCH ×4 (01:48→19:40)
[2021-11-13 04:00] VITALS: BP 88/57
[2021-11-13] MEDS: RILUTEK 50 MG GT SCH ×2 (05:44→18:11)
[2021-11-13] MEDS: CEFTAZIDIME 2 G in IV DEXTROSE 5% 100 ML IV SCH ×3 (05:44→22:47)
[2021-11-13] MEDS: METRONIDAZOLE 500 MG TABLET GT SCH (05:44)
[2021-11-13 06:38] LABS: HEMATOCRIT 25.8 % (31.2-41.9); MEAN CORPUSCULAR HEMOGLOBIN 27.9 uug (24.7-32.8); MEAN CORPUSCULAR VOLUME 84.7 fL (75.5-95.3); PLATELET COUNT (AUTO) 853 K/uL (179-408)
--- NOTE | 2021-11-13 06:47 | NUR ---
Pt stable throughout the shift. No s/s of acute distress noted. Pt is non-verbal. On cont sotomayor vent with portex #[address] and secured, with settings A/C 16, 500ml, peep 5, fio2 @40% saturating at 96%. Sinus tach 106 on the monitor. GTUBE patent and intact, with glucerna 1.2 running at 60cc/hr x 22 hrs. currently turned off. will endorse to oncoming nurse to turn back on at 0800. Mosley draining well. Pt had one bowel movement. Repositioned for comfort. Oral care and frequent suctioning provided. Safety measures in place. Chart checks done. Will continue with the plan of care.
[2021-11-13 06:55] LABS: CARBON DIOXIDE 39 mmol/L (21-32); CHLORIDE 88 mmol/L (98-107); CREATININE 0.4 mg/dL (0.6-1.3); GLUCOSE 117 mg/dL (74-106); MAGNESIUM 2.1 mg/dL (1.8-2.4); PHOSPHOROUS 3.4 mg/dL (2.5-4.9); POTASSIUM 4.1 mmol/L (3.5-5.1); UREA NITROGEN, BLOOD 23 mg/dL (7-18)
--- NOTE | 2021-11-13 07:58 | NUR ---
Patient became hypotensive with a blood pressure reading of 81/56. Dr. Sifuentes notified. Charge nurse Everardo assisted me in assessing the patient. Change position of patient and suctioned. Patient current vitals: BP 101/67, HR 99, Sat 95%. Will continue to monitor patient.
[2021-11-13 08:03] VITALS: BP 93/65
[2021-11-13] MEDS: GLUCERNA 1.2 1000ML LIQUID GT PRN (08:07)
--- NOTE | 2021-11-13 08:16 | NUR ---
Increased patient's fluids to 75cc/hr. Dr. Sifuentes notified.
[2021-11-13] MEDS: DOCUSATE SODIUM 100 MG/10 ML LIQUID UDC GT SCH ×2 (09:20→20:40)
[2021-11-13] MEDS: ASPIRIN 81 MG TAB.CHEW GT SCH (09:20)
[2021-11-13] MEDS: FAMOTIDINE 20 MG TABLET GT SCH (09:21)
[2021-11-13] MEDS: ASCORBIC ACID 500 MG TABLET GT SCH (09:21)
[2021-11-13] MEDS: REMEDY ESSENTIAL ZINC PASTE 113 GM TOP SCH ×2 (09:21→20:41)
[2021-11-13] MEDS: MULTIVITAMINS,THERAPEUTIC TABLET GT SCH (09:21)
[2021-11-13] MEDS: FLUCONAZOLE 200 MG TABLET GT SCH (09:28)
[2021-11-13] MEDS: VANCOMYCIN IV 750 MG in IV DEXTROSE 5% 250 ML IV SCH ×2 (09:29→20:42)
--- NOTE | 2021-11-13 10:15 | NUR ---
BP low. notified. Dr. Sifuentes ordered NS at 75cc/hr
[2021-11-13 12:00] VITALS: BP 102/71
--- NOTE | 2021-11-13 13:15 | NUR ---
Spoke to pharmacy regarding patient scheduled to receive Fortaz and Ferllecit both at 1400. Pharmacy advised to start Fortaz first, then call when complete to start Ferllecit. Will endorse information to PM nurse.
[2021-11-13] MEDS: SOD FERRIC GLUC COMPLX/SUCROSE 125 MG in IV NORMAL SALINE 100 ML IV SCH (14:19)
--- NOTE | 2021-11-13 15:47 | NUR ---
[facility] trough to be drawn at 1800. Lab notified and will endorse information to roof mechanic.
--- NOTE | 2021-11-13 18:56 | NUR ---
Patient stable throughout shift. RT adjusted vent settings due to patient saturating around 89-91 compared to 94%. Patient in no apparent distress or discomfort. IV site intact and patent. Will endorse info to PM nurse
--- NOTE | 2021-11-13 19:35 | NUR ---
PATIENT EYES OPEN, HOB ELEVATED, NO S/S OF CHEST PAIN, SOB, TELE MONITOR SINUS RHYTHM SINUS TACHY. ON GTF TOLERATE WELL NO N/V NOTED, NO DIARRHEA, NO RESIDUAL. PATIENT WAS TURN AND REPOSITION, TX ORDERED. PATIENT HAS IRWIN CATH DRAINING WELL, WITH YELLOW COLOR URINE IN MODERATE AMOUNT, WILL GIVE TYLENOL VIA GT FOR PAIN AND COMFORT, CONT ABX FOR PNEUMONIA, CONT TO MONITOR.
[2021-11-13] MEDS: IV NS 1000 ML 1,000 ML IV PRN (19:45)
[2021-11-13 20:05] VITALS: BP 143/78
[2021-11-13] MEDS: ACETAMINOPHEN 650 MG/20.3 ML LIQUID UDC GT PRN (20:40)
--- NOTE | 2021-11-13 20:42 | NUR ---
vanco iv held patient trough 20.6. as ordered
[2021-11-14] VITALS: BP 103/58
[2021-11-14] MEDS: IPRATROPIUM BROMIDE 0.5 MG/2.5 ML NEBU NEB SCH ×4 (00:45→19:24)
[2021-11-14] MEDS: ACETYLCYSTEINE 10% 4ML VIAL NEB SCH ×4 (00:45→19:24)
[2021-11-14 04:00] VITALS: BP 101/63
[2021-11-14] MEDS: RILUTEK 50 MG GT SCH ×2 (05:43→16:57)
[2021-11-14] MEDS: CEFTAZIDIME 2 G in IV DEXTROSE 5% 100 ML IV SCH ×3 (05:43→21:40)
[2021-11-14 06:19] LABS: CARBON DIOXIDE 34 mmol/L (21-32); CHLORIDE 95 mmol/L (98-107); CREATININE 0.4 mg/dL (0.6-1.3); GLUCOSE 116 mg/dL (74-106); POTASSIUM 3.7 mmol/L (3.5-5.1); UREA NITROGEN, BLOOD 15 mg/dL (7-18)
[2021-11-14 06:36] LABS: HEMATOCRIT 22.8 % (31.2-41.9); MEAN CORPUSCULAR VOLUME 85.1 fL (75.5-95.3); PLATELET COUNT (AUTO) 729 K/uL (179-408)
--- NOTE | 2021-11-14 06:41 | NUR ---
PATIENT EYES OPEN, HOB ELEVATED, NO SOB NO CHEST PAIN, SAT WNL, STILL SINUS RHYTHM AND SINUS TACHY, GTF TOLERATE WELL, TX CONT ON SACRAL WOUND, CONT ABX FOR PNA WITH NO ADVERSE REACTION NOTED, CONT TO MONITOR.
[2021-11-14] MEDS: ASCORBIC ACID 500 MG TABLET GT SCH (10:10)
[2021-11-14] MEDS: ASPIRIN 81 MG TAB.CHEW GT SCH (10:10)
[2021-11-14] MEDS: DOCUSATE SODIUM 100 MG/10 ML LIQUID UDC GT SCH ×2 (10:10→20:15)
[2021-11-14] MEDS: FLUCONAZOLE 200 MG TABLET GT SCH (10:10)
[2021-11-14] MEDS: FAMOTIDINE 20 MG TABLET GT SCH (10:11)
[2021-11-14] MEDS: MULTIVITAMINS,THERAPEUTIC TABLET GT SCH (10:11)
[2021-11-14] MEDS: REMEDY ESSENTIAL ZINC PASTE 113 GM TOP SCH ×2 (10:11→20:16)
[2021-11-14] MEDS: VANCOMYCIN IV 750 MG in IV DEXTROSE 5% 250 ML IV SCH ×2 (10:19→20:15)
[2021-11-14 11:06] LABS: CALCITRIOL VIT D,1,25 DIHYDROX 31.3 pg/mL (19.9-79.3)
[2021-11-14 12:00] VITALS: BP 119/71
[2021-11-14] MEDS: SOD FERRIC GLUC COMPLX/SUCROSE 125 MG in IV NORMAL SALINE 100 ML IV SCH (14:20)
--- NOTE | 2021-11-14 14:55 | NUR ---
RT PT FIO2 WAS TITRATED DOWN TO 30% PER MD TITRATION ORDER. NO DISTRESS NOTED PT SPO2 99%
[2021-11-14 16:00] VITALS: BP 114/74
[2021-11-14 20:13] VITALS: BP 108/65
[2021-11-14] MEDS: IV NS 1000 ML 1,000 ML IV PRN (23:06)
[2021-11-15 00:04] VITALS: BP 117/71
[2021-11-15] MEDS: ACETYLCYSTEINE 10% 4ML VIAL NEB SCH ×4 (00:39→19:20)
[2021-11-15] MEDS: IPRATROPIUM BROMIDE 0.5 MG/2.5 ML NEBU NEB SCH ×4 (00:39→19:20)
[2021-11-15 04:18] VITALS: BP 117/71
[2021-11-15] MEDS: GLUCERNA 1.2 1000ML LIQUID GT PRN (05:12)
--- NOTE | 2021-11-15 05:41 | NUR ---
Pt in bed resting. Trach with T-Piece in place. Suctioned PRN with closed suction. Mosley in place. GT feeding running Glucerna 1.2 as ordered. No distress noted. IV site intact. Will endorse to day shift.
[2021-11-15] MEDS: RILUTEK 50 MG GT SCH ×2 (06:19→17:11)
[2021-11-15] MEDS: CEFTAZIDIME 2 G in IV DEXTROSE 5% 100 ML IV SCH ×3 (06:20→21:37)
[2021-11-15 06:35] LABS: HEMATOCRIT 23.5 % (31.2-41.9); MEAN CORPUSCULAR HEMOGLOBIN 27.9 uug (24.7-32.8); MEAN CORPUSCULAR VOLUME 87.3 fL (75.5-95.3); PLATELET COUNT (AUTO) 706 K/uL (179-408)
[2021-11-15 06:39] LABS: CARBON DIOXIDE 31 mmol/L (21-32); CHLORIDE 98 mmol/L (98-107); CREATININE 0.3 mg/dL (0.6-1.3); GLUCOSE 130 mg/dL (74-106); MAGNESIUM 2.1 mg/dL (1.8-2.4); PHOSPHOROUS 2.6 mg/dL (2.5-4.9); POTASSIUM 4.1 mmol/L (3.5-5.1); UREA NITROGEN, BLOOD 12 mg/dL (7-18)
--- NOTE | 2021-11-15 07:45 | NUR ---
RESTING COMFORTABLY IN BED WITH EYES CLOSED, VENT SETTINGS 22-28-126-32% SATURATING 98%. AFEBRILE. SR/ST ON MONITOR. SEEN BY DR THAO FOR FOLLOW-UP SEE NOTES
[2021-11-15 07:53] VITALS: BP 154/77
[2021-11-15] MEDS: DOCUSATE SODIUM 100 MG/10 ML LIQUID UDC GT SCH ×2 (08:35→20:10)
[2021-11-15] MEDS: ASPIRIN 81 MG TAB.CHEW GT SCH (08:35)
[2021-11-15] MEDS: FLUCONAZOLE 200 MG TABLET GT SCH (08:35)
[2021-11-15] MEDS: FAMOTIDINE 20 MG TABLET GT SCH (08:35)
[2021-11-15] MEDS: ASCORBIC ACID 500 MG TABLET GT SCH (08:35)
[2021-11-15] MEDS: MULTIVITAMINS,THERAPEUTIC TABLET GT SCH (08:35)
[2021-11-15] MEDS: ACETAMINOPHEN 650 MG/20.3 ML LIQUID UDC GT PRN (08:35)
[2021-11-15] MEDS: REMEDY ESSENTIAL ZINC PASTE 113 GM TOP SCH ×2 (08:36→20:11)
[2021-11-15] MEDS: VANCOMYCIN IV 750 MG in IV DEXTROSE 5% 250 ML IV SCH ×2 (08:38→20:10)
[2021-11-15 11:21] VITALS: BP 139/68
--- NOTE | 2021-11-15 11:59 | NUR ---
NO ACUTE CHANGE FROM MORNING ASSESSMENT
[2021-11-15] MEDS: SOD FERRIC GLUC COMPLX/SUCROSE 125 MG in IV NORMAL SALINE 100 ML IV SCH (14:13)
[2021-11-15] MEDS: IV NS 1000 ML 1,000 ML IV PRN (14:13)
[2021-11-15 16:57] VITALS: BP 140/70
--- NOTE | 2021-11-15 18:03 | NUR ---
SEEN BY SONIA FOR ID FOLLOW-UP SEE NOTES. SR/ST ON MONITOR SATURATING 99%. AFEBRILE
--- NOTE | 2021-11-15 19:30 | NUR ---
Received pt awake and nonverbal. Pt in no acute distress. Iv intact. Pt on trach Tpiece. Pt in sinus rhythm /sinus tachycardia. Pt tolerating gtube feeding. Pt have draining zapata catheter . Safety and comfort provided. Will continue to monitor.
[2021-11-15 20:12] VITALS: BP 112/75
[2021-11-16 00:30] VITALS: BP 128/76
[2021-11-16] MEDS: ACETYLCYSTEINE 10% 4ML VIAL NEB SCH ×4 (00:30→20:00)
[2021-11-16] MEDS: IPRATROPIUM BROMIDE 0.5 MG/2.5 ML NEBU NEB SCH ×4 (00:30→20:00)
[2021-11-16 04:52] VITALS: BP 131/83
[2021-11-16] MEDS: CEFTAZIDIME 2 G in IV DEXTROSE 5% 100 ML IV SCH ×3 (05:48→23:09)
[2021-11-16] MEDS: RILUTEK 50 MG GT SCH ×3 (05:48→21:00)
--- NOTE | 2021-11-16 06:14 | NUR ---
Pt in no acute respiratory distress. Iv intact. Pt on trach and T piece. Pt turned and repositioned. Suction prn needed. Dressing changed. Noted to have edema on right hand. Prescribed medication given and pt tolerated it well. Pt tolerating gtube feeding.Pt satble and vital signs within normal limit. Safety and comfort provided. Will endorse to incoming nurse for continuity of care.
[2021-11-16] MEDS: IV NS 1000 ML 1,000 ML IV PRN (06:22)
--- NOTE | 2021-11-16 08:00 | NUR ---
Pt non verbal and non responsive. Vent as ordered pt saturating 02 97%. Pt is in no acute distress. Mosley draining yellow with minimal sediment. G tube no residual noted.
[2021-11-16 08:04] VITALS: BP 126/72
[2021-11-16 08:07] LABS: CARBON DIOXIDE 30 mmol/L (21-32); CHLORIDE 98 mmol/L (98-107); CREATININE 0.3 mg/dL (0.6-1.3); GLUCOSE 118 mg/dL (74-106); POTASSIUM 4.1 mmol/L (3.5-5.1); UREA NITROGEN, BLOOD 12 mg/dL (7-18)
[2021-11-16 08:08] LABS: HEMATOCRIT 23.5 % (31.2-41.9); MEAN CORPUSCULAR HEMOGLOBIN 28.5 uug (24.7-32.8); MEAN CORPUSCULAR VOLUME 88.5 fL (75.5-95.3); PLATELET COUNT (AUTO) 608 K/uL (179-408)
[2021-11-16] MEDS: FAMOTIDINE 20 MG TABLET GT SCH (08:29)
[2021-11-16] MEDS: ASCORBIC ACID 500 MG TABLET GT SCH (08:29)
[2021-11-16] MEDS: MULTIVITAMINS,THERAPEUTIC TABLET GT SCH (08:29)
[2021-11-16] MEDS: ASPIRIN 81 MG TAB.CHEW GT SCH (08:29)
[2021-11-16] MEDS: DOCUSATE SODIUM 100 MG/10 ML LIQUID UDC GT SCH ×2 (08:29→20:57)
[2021-11-16] MEDS: FLUCONAZOLE 200 MG TABLET GT SCH (08:32)
[2021-11-16] MEDS: VANCOMYCIN IV 750 MG in IV DEXTROSE 5% 250 ML IV SCH ×2 (09:17→20:57)
[2021-11-16] MEDS: REMEDY ESSENTIAL ZINC PASTE 113 GM TOP SCH ×2 (09:17→21:11)
--- NOTE | 2021-11-16 10:00 | NUR ---
Son Thor [phone] here to visit patient. DR Ceja here to see patient.
[2021-11-16 12:13] VITALS: BP 139/72
[2021-11-16 16:11] VITALS: BP 150/76
--- NOTE | 2021-11-16 18:21 | NUR ---
No bleeding noted throughout shift. Limited the water flush 50cc total to help with the sodium. Call light is within reach.
[2021-11-16 20:00] VITALS: BP 133/78
[2021-11-16] MEDS: GLUCERNA 1.2 1000ML LIQUID GT PRN (20:00)
--- NOTE | 2021-11-16 21:30 | NUR ---
PATIENT AWAKE BUT NON VERBAL, HOB ELEVATED, NO SOB NO CHEST PAIN, ON VENT ORDERED, SAT WNL, TELE MONITOR SINUS RHYTHM 73. PATIENT HAS NO S/S OF PAIN, TURN AND REPOSITION, KEPT COMFORTABLE.
[2021-11-17] VITALS: BP 138/82
[2021-11-17] MEDS: ACETYLCYSTEINE 10% 4ML VIAL NEB SCH ×3 (01:41→13:14)
[2021-11-17] MEDS: IPRATROPIUM BROMIDE 0.5 MG/2.5 ML NEBU NEB SCH ×3 (01:41→13:14)
[2021-11-17] MEDS: IV NS 1000 ML 1,000 ML IV PRN (03:32)
[2021-11-17 04:00] VITALS: BP 119/77
[2021-11-17] MEDS: CEFTAZIDIME 2 G in IV DEXTROSE 5% 100 ML IV SCH ×2 (05:06→13:51)
[2021-11-17] MEDS: RILUTEK 50 MG GT SCH ×2 (06:21→16:51)
[2021-11-17 06:35] LABS: HEMATOCRIT 23.2 % (31.2-41.9); MEAN CORPUSCULAR HEMOGLOBIN 29.4 uug (24.7-32.8); MEAN CORPUSCULAR VOLUME 88.9 fL (75.5-95.3); PLATELET COUNT (AUTO) 529 K/uL (179-408)
[2021-11-17 06:39] LABS: CARBON DIOXIDE 28 mmol/L (21-32); CHLORIDE 97 mmol/L (98-107); CREATININE 0.2 mg/dL (0.6-1.3); GLUCOSE 122 mg/dL (74-106); MAGNESIUM 2.1 mg/dL (1.8-2.4); PHOSPHOROUS 2.8 mg/dL (2.5-4.9); UREA NITROGEN, BLOOD 11 mg/dL (7-18)
--- NOTE | 2021-11-17 06:40 | NUR ---
PATIENT SLEEP INTERMITTENTLY, HOB ELEVATED, NO SOB NO CHEST PAIN, ON VENT ORDERED, SAT WNL, TELE MONITOR SINUS RHYTHM 75 PATIENT HAS NO S/S OF PAIN, TURN AND REPOSITION, CONT ABX FOR PNA WITH ADVERSE REACTION NOTED. TOLERATE GTF, NO NAUSEA NO VOMITING , NO DIARRHEA. SUCTIONED WITH YELLOW WHITISH COLOR SPUTUM IN MODERATE AMOUNT, KEPT COMFORTABLE.
--- NOTE | 2021-11-17 07:46 | NUR ---
Received patient report from PM nurse. Arrived to patient sleeping comfortably in bed with no signs of distress or discomfort. Patient currently receiving oxygen via trach: Portex #8, Peep 5, FiO2 32, TV 500 and saturating at 97%. IV site intact and patent running at 75cc/hr of normal saline. Bed left in lowest position. Comfort measures provided. Will continue to monitor patient throughout shift.
[2021-11-17 07:55] VITALS: BP 117/71
[2021-11-17] MEDS: DOCUSATE SODIUM 100 MG/10 ML LIQUID UDC GT SCH (08:26)
[2021-11-17] MEDS: FAMOTIDINE 20 MG TABLET GT SCH (08:26)
[2021-11-17] MEDS: ASPIRIN 81 MG TAB.CHEW GT SCH (08:26)
[2021-11-17] MEDS: FLUCONAZOLE 200 MG TABLET GT SCH (08:26)
[2021-11-17] MEDS: ASCORBIC ACID 500 MG TABLET GT SCH (08:26)
[2021-11-17] MEDS: MULTIVITAMINS,THERAPEUTIC TABLET GT SCH (08:26)
[2021-11-17] MEDS: REMEDY ESSENTIAL ZINC PASTE 113 GM TOP SCH (08:27)
[2021-11-17] MEDS: VANCOMYCIN IV 750 MG in IV DEXTROSE 5% 250 ML IV SCH (08:27)
[2021-11-17 09:29] LABS: ABG BASE EXCESS 3.5 mmol/L; ABG HCO3 26.2 mmol/L; ABG PCO2 31.8 mmHg (35.0-45.0); ABG PH 7.533 (7.350-7.450); ABG PO2 82.8 mmHg (75.0-100.0); ABG SITE RIGHT RADIAL; ABG TOTAL HEMOGLOBIN 8.3 G/dL (12.0-16.0); COHb 0.3 % (0.5-1.5); MetHb 0.3 % (0.0-1.5); O2Hb 95.6 % (94.0-97.0); VENT MODE VENT - A/C; VT, ABG 500 mL
--- NOTE | 2021-11-17 12:00 | NUR ---
SEEN BY DR KRISHNAN WITH PLAN TO DISCHARGE TO SUB-ACUTE
[2021-11-17 12:04] VITALS: BP 123/76
[2021-11-17] MEDS ORDERED: RXVAN XX (14:12)
[2021-11-17] MEDS ORDERED: CEFT2PIG5 IV (14:12)
[2021-11-17] MEDS ORDERED: ASPI81TA31 GT (14:12)
[2021-11-17] MEDS ORDERED: DOCU50LI GT (14:12)
[2021-11-17] MEDS ORDERED: MENT113O TOP (14:12)
[2021-11-17] MEDS ORDERED: FERR325T28 GT (14:12)
[2021-11-17] MEDS ORDERED: ASCO500P18 GT (14:12)
[2021-11-17] MEDS ORDERED: FLUC200T GT (14:12)
[2021-11-17] MEDS ORDERED: POLY17PO4 GT (14:12)
[2021-11-17] MEDS ORDERED: ZINC220T4 GT (14:12)
[2021-11-17 16:00] VITALS: BP 151/86
[2021-11-17] MEDS: ACETAMINOPHEN 650 MG/20.3 ML LIQUID UDC GT PRN (16:51)
--- NOTE | 2021-11-17 17:56 | NUR ---
discharged to sub-acute via bed with RT on board. report given to staff
== END 2021-11-17 17:50 | DRG 870 ==
LOC: ER 09:37 → DOU3 15:44 → TELE-TD3 15:56
PROVIDERS: ADMIT Internal Medicine; ATTEND Internal Medicine
PROC: 5A1955Z Respiratory Ventilation, Greater than 96 Consecutive Hours (ICD-10-PCS; principal; 2021-11-05)
DX: A41.9 Sepsis, unspecified organism (principal); R53.2 Functional quadriplegia; G93.41 Metabolic encephalopathy; E43 Unspecified severe protein-calorie malnutrition; J69.0 Pneumonitis due to inhalation of food and vomit; J96.21 Acute and chronic respiratory failure with hypoxia; J96.22 Acute and chronic respiratory failure with hypercapnia; J15.1 Pneumonia due to Pseudomonas; G12.21 Amyotrophic lateral sclerosis; B37.49 Other urogenital candidiasis; D68.59 Other primary thrombophilia; E22.2 Syndrome of inappropriate secretion of antidiuretic hormone; I50.32 Chronic diastolic (congestive) heart failure; Z99.11 Dependence on respirator [ventilator] status; Z66 Do not resuscitate; D63.8 Anemia in other chronic diseases classified elsewhere; D75.839 Thrombocytosis, unspecified; E88.09 Other disorders of plasma-protein metabolism, not elsewhere classified; I11.0 Hypertensive heart disease with heart failure; R13.10 Dysphagia, unspecified; Z93.1 Gastrostomy status; Z87.01 Personal history of pneumonia (recurrent); Z20.822 Contact with and (suspected) exposure to COVID-19; Z93.0 Tracheostomy status; R21 Rash and other nonspecific skin eruption; Z68.22 Body mass index [BMI] 22.0-22.9, adult; R73.03 Prediabetes; K56.41 Fecal impaction; L89.156 Pressure-induced deep tissue damage of sacral region; Z74.09 Other reduced mobility
CPT/HCPCS: 36415; 36600; 70030-TC; 70450; 71045; 74018; 82533; 82652; 82747; 82784; 83550; 83605; 83735; 83935; 83970; 84100; 84155; 84165; 84300; 84443; 84550; 85014; 85025; 86334; 87040; 87070; 87077; 87086; 93005; 93307; 94002; 94003; 94640; 94664; 94760; A4217; A4663; A6209; G0378; J0278; J0713; J1450; J2543; J2916; J3260; J3370; J3490; J3590; J7030; J7040; J7050; J7060

== ENCOUNTER 2021-11-17 18:00 | Inpatient (IN) | payer MEDICARE, MEDICAID ==
[~2021-11-17] VITALS: Ht 157.5 cm; Wt 55.8 kg
[~2021-11-17 18:00] MED LIST changes: +ACET-2154 GT; +ACET100V4 NEB; +ASCO500P18 GT; +ASCO500T10 GT; +ASPI81TA31 GT; +CEFT2PIG5 IV; +DOCU50LI GT; +FAMO-132 GT; +FERR325T28 GT; +FLUC200T GT; +HEPA500034 SQ; -IOHEXOL 300MG/ML 100 ML INFUS..BTL ONE; +IPRA0.2S48 NEB; -IV NORMAL SALINE 250 ML IV ONE; +LACT-209 GT; +LORA-258 GT; +MENT113O TOP; +MULT-594 GT; +POLY17PO4 GT; +RILU50TA14 GT; +RXVAN XX; -SWABABLE VALVE TRANSFER SET EA MC ONE; +TOBR40VI2 IV; +ZINC220T4 GT
--- NOTE | 2021-11-17 18:00 | NUR ---
PT. WAS ADMITTED AT THIS TIME ,REPORT OBTAINED FROM AURE Pastrana FROM 3RD FLOOR. AWAKE WITH V/S FOLLOW:TEMP 98F ,HR 99X',RR 20X',B/P 107/74 O2 SAT 99%.RT AT BED SIDE WITH VENT SETTINGS WELL TOLERATED FOLLOW:FIO2 32%,TV 500,RR 14X',PEEP 5 AC MODE . SKIN PALE AND COLD TO TOUCH.
--- NOTE | 2021-11-17 18:40 | NUR ---
DR. PENN WAS PAGED TO VERIFY MEDICAL ORDERS.
--- NOTE | 2021-11-17 19:30 | NUR ---
MEDICAL ORDERS WERE VERIFIED WITH DR. KRISHNAN AND CARRIED OUT.
[2021-11-17] MEDS ORDERED: LORAZEPAM 0.5 MG TABLET GT PRN (20:00)
[2021-11-17] MEDS ORDERED: MIRALAX 17 GM POWD.PACK GT PRN (20:00)
--- NOTE | 2021-11-17 20:00 | NUR ---
PT'S SON WAS NOTIFIED ABOUT PT'S ADMISSION TO SUB ACUTE UNIT,AND GAVE CONSENT FOR ATIVAN PRN TO 2 NURSES BY PHONE.
[2021-11-17] MEDS ORDERED: ACETAMINOPHEN 650 MG/20 ML UDC- SA PATIENTS-FEVER ONLY GT PRN ×2 (20:15)
[2021-11-17] MEDS ORDERED: ACETAMINOPHEN 650 MG/20 ML UDC- SA PATIENTS-PAIN ONLY GT PRN ×2 (20:15)
[2021-11-17] MEDS ORDERED: GLUCERNA 1.2 1000ML LIQUID GT PRN (20:45)
[2021-11-17] MEDS: REMEDY ESSENTIAL ZINC PASTE 113 GM TP SCH (21:00)
[2021-11-17] MEDS ORDERED: REMEDY ESSENTIAL ZINC PASTE 113 GM TP SCH (21:00)
[2021-11-17] MEDS: HEPARIN SODIUM,PORCINE 5,000 UNITS/ML VIAL SQ SCH (21:00)
[2021-11-17] MEDS: DOCUSATE SODIUM 100 MG/10 ML LIQUID UDC GT SCH (21:00)
[2021-11-17] MEDS: NORMAL SALINE FLUSH 10 ML DISP.SYRIN IV SCH (21:00)
[2021-11-17] MEDS: VANCOMYCIN IV 750 MG in IV DEXTROSE 5% 250 ML IV SCH (21:00)
--- NOTE | 2021-11-17 21:10 | NUR ---
CH. NURSE SPOKE TO CHIRAG IV PHARMACIST FROM [facility] AND AWARE TO DOSE VANCOMYCIN IV AND WITH NEW ORDER TO HOLD DOSE TONIGHT AND DO RANDOM VANCOMYCIN TOMORROW AM AND WILL CALL BACK RE: [employer].
[2021-11-17] MEDS ORDERED: CEFTAZIDIME 1 G VIAL ONE (22:52)
[2021-11-17] MEDS ORDERED: HEPARIN SODIUM,PORCINE 5,000 UNITS/ML VIAL ONE (22:52)
[2021-11-17] MEDS: CEFTAZIDIME 2 G in IV DEXTROSE 5% 100 ML IV SCH (22:58)
--- NOTE | 2021-11-17 23:16 | NUR ---
RT ARM MIDLINE LOCAL DRESSING CHANGED,REMAINS PATENT AND FREE FROM S/S OF LOCAL INFECTION.
--- NOTE | 2021-11-17 23:40 | NUR ---
COVID 19 SPECIMEN COLLECTED AND PT. REMAINS ON CONTACT ISOLATION PUI UP ON ADMISSION AND CONTACT ISOLATIOB FOR HX ESBL IN URINE RECOMMENDED BY HOSPITAL FOOD EXPEDITOR.PT. SCREENING FOR MRSA NARES.
[2021-11-18] MEDS: ACETYLCYSTEINE 10% 4ML VIAL IH SCH ×4 (00:34→19:12)
[2021-11-18] MEDS: IPRATROPIUM BROMIDE 0.5 MG/2.5 ML NEBU NEB SCH ×4 (00:34→19:12)
[2021-11-18] MEDS ORDERED: RILUZOLE 50 MG TABLET GT SCH (06:00)
[2021-11-18] MEDS: RILUZOLE 50 MG TABLET GT SCH ×2 (06:01→17:00)
[2021-11-18] MEDS: CEFTAZIDIME 2 G in IV DEXTROSE 5% 100 ML IV SCH ×3 (06:06→22:02)
--- NOTE | 2021-11-18 06:34 | NUR ---
Patient Vent dependent , feeding via peg tube Glucerna 1.2 60 ml/hr x20 hrs, continue on Diflucan dx uti twyla as ordered via peg tube Continue on IV ATB for pneumonia Fortaz 2 Gm IV every 8 hours for pneumonia ,no adverse reaction noted,midline on the r upper arm intact,flushed as ordered. Vancomycin dose for 11/17/21 at 2200 not to give until random trough done in AM. Sacrum wound dressing intact. continue monitoring for new admission.
[2021-11-18 07:18] LABS: CREATININE 0.3 mg/dL (0.6-1.3); UREA NITROGEN, BLOOD 15 mg/dL (7-18); VANCOMYCIN,RANDOM 14.2 ug/mL (18.0-26.0)
[2021-11-18] MEDS: MULTIVITAMINS,THERAPEUTIC TABLET GT SCH (09:00)
[2021-11-18] MEDS: VANCOMYCIN IV 750 MG in IV DEXTROSE 5% 250 ML IV SCH (09:00)
[2021-11-18] MEDS: FAMOTIDINE 20 MG TABLET GT SCH (09:00)
[2021-11-18] MEDS: ASPIRIN 81 MG TAB.CHEW GT SCH (09:00)
[2021-11-18] MEDS: ASCORBIC ACID 500 MG TABLET GT SCH (09:00)
[2021-11-18] MEDS: HEPARIN SODIUM,PORCINE 5,000 UNITS/ML VIAL SQ SCH ×2 (09:00→21:15)
[2021-11-18] MEDS: DOCUSATE SODIUM 100 MG/10 ML LIQUID UDC GT SCH ×2 (09:00→21:11)
[2021-11-18] MEDS: FLUCONAZOLE 200 MG TABLET GT SCH (09:00)
[2021-11-18] MEDS: REMEDY ESSENTIAL ZINC PASTE 113 GM TP SCH ×2 (09:00→21:15)
[2021-11-18] MEDS: MIRALAX 17 GM POWD.PACK GT SCH (09:00)
[2021-11-18] MEDS: NORMAL SALINE FLUSH 10 ML DISP.SYRIN IV SCH ×3 (09:00→21:00)
[2021-11-18] MEDS: FERROUS SULFATE 330 MG/7.5 ML UDC- FOR SA ONLY GT SCH ×2 (09:00→17:00)
[2021-11-18] MEDS ORDERED: FLUCONAZOLE 200 MG TABLET ONE (10:10)
--- NOTE | 2021-11-18 19:55 | NUR ---
Continue on IVATB for pneumonia Fortaz 2 Gm IV every 8 hours and vancomycin 1 gm every 24 hours for pneumonia ,no adverse reaction noted,midline on the r upper arm intact,flushed as ordered.
[2021-11-18] MEDS ORDERED: VANCOMYCIN IV 1,000 MG in IV DEXTROSE 5% 250 ML IV SCH (21:00)
[2021-11-19] MEDS: IPRATROPIUM BROMIDE 0.5 MG/2.5 ML NEBU NEB SCH ×4 (00:40→19:00)
[2021-11-19] MEDS: ACETYLCYSTEINE 10% 4ML VIAL IH SCH ×3 (00:40→13:20)
[2021-11-19] MEDS: RILUZOLE 50 MG TABLET GT SCH ×2 (05:51→17:39)
[2021-11-19] MEDS: CEFTAZIDIME 2 G in IV DEXTROSE 5% 100 ML IV SCH ×3 (06:00→21:56)
[2021-11-19 06:24] LABS: MEAN CORPUSCULAR HEMOGLOBIN 29.3 uug (24.7-32.8); MEAN CORPUSCULAR VOLUME 88.4 fL (75.5-95.3); PLATELET COUNT (AUTO) 496 K/uL (179-408)
--- NOTE | 2021-11-19 06:51 | NUR ---
Continue on IV ATB for pneumonia Fortaz 2 Gm IV every 8 hours and vancomycin 1 gm every 24 hours for pneumonia ,no adverse reaction noted,midline on the r upper arm intact,flushed as ordered. Contact isolation PUI, contact isolation, Contact isolation ESBL in urine per (ID infection prevention) observed. continue monitoring
[2021-11-19] MEDS: FERROUS SULFATE 330 MG/7.5 ML UDC- FOR SA ONLY GT SCH ×2 (08:22→16:51)
[2021-11-19] MEDS: DOCUSATE SODIUM 100 MG/10 ML LIQUID UDC GT SCH ×2 (08:22→21:19)
[2021-11-19] MEDS: FLUCONAZOLE 200 MG TABLET GT SCH (08:22)
[2021-11-19] MEDS: FAMOTIDINE 20 MG TABLET GT SCH (08:22)
[2021-11-19] MEDS: ASPIRIN 81 MG TAB.CHEW GT SCH (08:22)
[2021-11-19] MEDS: MULTIVITAMINS,THERAPEUTIC TABLET GT SCH (08:22)
[2021-11-19] MEDS: MIRALAX 17 GM POWD.PACK GT SCH (08:22)
[2021-11-19] MEDS: ASCORBIC ACID 500 MG TABLET GT SCH (08:23)
[2021-11-19] MEDS: HEPARIN SODIUM,PORCINE 5,000 UNITS/ML VIAL SQ SCH ×2 (08:28→21:22)
[2021-11-19] MEDS: REMEDY ESSENTIAL ZINC PASTE 113 GM TP SCH ×2 (08:29→21:19)
[2021-11-19] MEDS: NORMAL SALINE FLUSH 10 ML DISP.SYRIN IV SCH ×2 (09:00→21:56)
[2021-11-19] MEDS: VANCOMYCIN IV 1,000 MG in IV DEXTROSE 5% 250 ML IV SCH (09:00)
[2021-11-19] MEDS ORDERED: HYDROGEN PEROXIDE 3% 118 ML BOTTLE TP PRN (16:15)
--- NOTE | 2021-11-19 18:16 | NUR ---
CONTINUE ON FORTAZ 2 GM IV Q 8HRS AND VANCOMYCIN 1 GM IV Q 24HRS FOR PNA. NO ADVERSE REACTION NOTED, RIGHT UPPER ARM MIDLINE INTACT AND PATENT. CONTINUE ON COVID PUI ISOLATION PROTOCAL AND CONTACT ISOLATION FOR ESBL URINE. WILL CONTINUE TO MONITOR.
[2021-11-19] MEDS: ACETYLCYSTEINE 10% 4ML VIAL NEB SCH (19:00)
[2021-11-19] MEDS: HYDROGEN PEROXIDE 3% 118 ML BOTTLE TP SCH (21:02)
[2021-11-20] MEDS: ACETYLCYSTEINE 10% 4ML VIAL NEB SCH ×4 (00:58→19:33)
[2021-11-20] MEDS: IPRATROPIUM BROMIDE 0.5 MG/2.5 ML NEBU NEB SCH ×4 (00:58→19:33)
[2021-11-20] MEDS: CEFTAZIDIME 2 G in IV DEXTROSE 5% 100 ML IV SCH ×2 (05:16→14:00)
[2021-11-20] MEDS: RILUZOLE 50 MG TABLET GT SCH ×2 (05:52→18:38)
[2021-11-20] MEDS: ASPIRIN 81 MG TAB.CHEW GT SCH (08:33)
[2021-11-20] MEDS: DOCUSATE SODIUM 100 MG/10 ML LIQUID UDC GT SCH ×2 (08:33→20:57)
[2021-11-20] MEDS: FLUCONAZOLE 200 MG TABLET GT SCH (08:33)
[2021-11-20] MEDS: MIRALAX 17 GM POWD.PACK GT SCH (08:34)
[2021-11-20] MEDS: FERROUS SULFATE 330 MG/7.5 ML UDC- FOR SA ONLY GT SCH ×2 (08:34→17:00)
[2021-11-20] MEDS: MULTIVITAMINS,THERAPEUTIC TABLET GT SCH (08:34)
[2021-11-20] MEDS: ASCORBIC ACID 500 MG TABLET GT SCH (08:34)
[2021-11-20] MEDS: FAMOTIDINE 20 MG TABLET GT SCH (08:34)
[2021-11-20] MEDS: REMEDY ESSENTIAL ZINC PASTE 113 GM TP SCH ×2 (08:37→20:57)
[2021-11-20] MEDS: HEPARIN SODIUM,PORCINE 5,000 UNITS/ML VIAL SQ SCH ×2 (08:37→21:00)
[2021-11-20] MEDS: NORMAL SALINE FLUSH 10 ML DISP.SYRIN IV SCH (08:46)
[2021-11-20] MEDS: VANCOMYCIN IV 1,000 MG in IV DEXTROSE 5% 250 ML IV SCH (08:46)
[2021-11-20 09:01] LABS: CARBON DIOXIDE 28 mmol/L (21-32); CHLORIDE 95 mmol/L (98-107); CREATININE 0.3 mg/dL (0.6-1.3); GLUCOSE 136 mg/dL (74-106); POTASSIUM 3.8 mmol/L (3.5-5.1); UREA NITROGEN, BLOOD 15 mg/dL (7-18)
[2021-11-20] MEDS: HYDROGEN PEROXIDE 3% 118 ML BOTTLE TP SCH ×2 (09:40→21:19)
--- NOTE | 2021-11-20 11:19 | NUR ---
WOUND CARE CONSULT: PT SEEN FOR SACRAL UNSTAGEABLE PRESSURE ULCER, PRESENT ON ADMISSION. SACRAL WOUND MEASURES 3CM X 2CM X UTD AND IS RED, PINK AND YELLOW IN COLOR WITH SCANT PINK DRAINAGE, NO ODOR. SCARRING NOTED TO PERIWOUND AREA. PT IS VERY THIN AND BONY. PT IS INCONTINENT OF URINE AND STOOL. RECOMMENDATIONS MADE FOR SKIN PROTECTION AND WOUND CARE. DISCUSSED WITH NURSING STAFF. DR JAYRO ROCHA CALLED FOR SURGICAL CONSULT. MD IN AGREEMENT WITH PLAN OF CARE. PT IS ON FIRST STEP [facility] BED.
--- NOTE | 2021-11-20 19:15 | NUR ---
Patient is awake during rounds, connected to vent on prescribed settings, ventilator is working properly, no signs of any respiratory distress, on Antibiotic for Pneumonia, kept clean and comfortable, will continue monitor.
--- NOTE | 2021-11-20 22:05 | NUR ---
Unable to appreciate patient's vital signs; Patient is apneic X 5 minutes, pupils fixed and dilated to light, unable to appreciate pulse X 1 minutes. Patient is a DNR, Pronounced at [address] Heri Dougherty. Son Thor Montelongo was notified of patient's passing and he wants to come and say goodbye to his mother. Thor came with his Jeromy, and at the patient's room. Thor has no mortuary arrangement for now and will call back tomorrow. This Nurse informed him that the remains will only be here at the unit up to four hours and may be [place] [facility] he agree with it. Post mortem care done, patient has no belongings, proper wrist band and identifications on patient.
[2021-11-21] MEDS ORDERED: VANCOMYCIN IV 1,000 MG in IV DEXTROSE 5% 250 ML IV SCH (05:00)
[2022-07-17] MEDS ORDERED: TUBERCULIN,PURIF.PROT.DERIV. 5 TU/0.1 ML TEST ID SCH (09:00)
== END 2021-11-20 23:58 | DRG 133 ==
LOC: SA 18:00
PROVIDERS: ADMIT Internal Medicine; ATTEND Internal Medicine Pulmonary Disease
PROC: 5A1945Z Respiratory Ventilation, 24-96 Consecutive Hours (ICD-10-PCS; principal; 2021-11-17)
DX: J96.21 Acute and chronic respiratory failure with hypoxia (principal); J69.0 Pneumonitis due to inhalation of food and vomit; G93.41 Metabolic encephalopathy; E43 Unspecified severe protein-calorie malnutrition; G12.21 Amyotrophic lateral sclerosis; B48.8 Other specified mycoses; E46 Unspecified protein-calorie malnutrition; D68.59 Other primary thrombophilia; Z99.11 Dependence on respirator [ventilator] status; D63.8 Anemia in other chronic diseases classified elsewhere; E87.1 Hypo-osmolality and hyponatremia; E88.09 Other disorders of plasma-protein metabolism, not elsewhere classified; I11.0 Hypertensive heart disease with heart failure; I50.32 Chronic diastolic (congestive) heart failure; D75.839 Thrombocytosis, unspecified; Z66 Do not resuscitate; L89.90 Pressure ulcer of unspecified site, unspecified stage; R21 Rash and other nonspecific skin eruption; R13.10 Dysphagia, unspecified; R73.03 Prediabetes; Z20.822 Contact with and (suspected) exposure to COVID-19
CPT/HCPCS: 36415; 84520; 85025; 94002; 94003; 94640; 97161; 99082-TC; J0713; J1644; J3370; J3490; J7060; U0003